=== PATIENT | female | born 1950 | race Caucasian/White ===

== ENCOUNTER → 2017-06-23 09:56 | Outpatient (CLI) | payer MEDICARE, OTHER, SELFPAY ==
--- NOTE | 2017-06-23 10:01 | HPBI_ITS ---
MAMMOGRAPHY - BILATERAL SCREENING REASON FOR EXAM: Female, 66 years old. Routine annual screening examination. PERTINENT HISTORY: Sister with breast cancer. TECHNIQUE: Digital bilateral breast saadia (3D mammographic acquisition) in the CC and MLO projections. 2-D mediolateral oblique (MLO) and craniocaudad (CC) views of both breasts were obtained. CAD: Full Field Digital Mammography with Computer Added Detection was performed. COMPARISON: Comparison is made with prior study dated September 05, 2015 and July 12, 2014. FINDINGS: Breast Composition: The breasts are almost entirely fatty. There are no dominant masses or suspicious calcifications. A battery pack from a left-sided pacemaker is seen in the left axillary region. This is unchanged. No other significant abnormalities are identified. There has been no significant change since the prior study. HPBI/SCREENING MAMM (CAD), BILAT IMPRESSION: Stable bilateral screening mammogram. Yearly follow-up mammogram recommended. (A) ASSESSMENT CATEGORY: BIRADS Category 1: Negative. A letter regarding these results will be sent to the patient by the facility within 30 days. Approximately 10% of breast cancers are not detected by mammography. A normal mammogram should not delay biopsy of a clinically suspicious abnormality. [id number] Electronically Signed: Albin Owusu MD at 12:39 EST Tel [phone], Service support ,
== END ==
PROVIDERS: Family Provider Family Medicine; PCP Family Medicine; Visit Provider Family Medicine
DX: Z12.31 Encounter for screening mammogram for malignant neoplasm of breast (principal)
CPT/HCPCS: 77063; 77067

== ENCOUNTER → 2018-02-10 16:24 | Outpatient (CLI) | payer MEDICARE, OTHER, SELFPAY ==
[2018-02-10 12:17] LABS: Absolute Lymphocyte Count 1.61 X10^3/ul (0.83-4.51); Absolute Neutrophil Count 4.6 X10^3/uL (2.0-7.7); Basophil# 0.03 X10^3/uL; Basophil% 0.4 % (0-1); Eosinophils% 2.8 % (0-5); Hematocrit 40.9 % (37-47); Hemoglobin 13.6 g/dl (12.0-15.0); Lymphocyte # 1.61 X10^3/ul (4.0); Lymphocyte % 22.9 % (19-41); Mean Corp Hgb Conc 33.3 g/gl (32-36); Mean Corpuscular Hgb 32.2 pg (27.0-32.0); Mean Corpuscular Volume 96.9 fL (81-99); Mean Platelet Vol. 11.4 fl (6.2-12.0); Monocyte# 0.57 X10^3/uL; Monocyte% 8.1 % (0-10); Neutrophil # 4.61 X10^3/uL (2.7-7.7); Neutrophil % 65.7 % (47-70); Platelet Count 206 K/mm3 (150-450); RBC Distribution Width CV 12.9 % (11.6-14.6); RBC Distribution Width SD 44.6 fl (35.1-43.9); Red Blood Count 4.22 M/mm3 (4.2-5.4)
[2018-02-10 12:23] LABS: POSITIVE COUNT NO; POSITIVE DIFFERENTIAL NO; POSITIVE MORPHOLOGY NO
[2018-02-10 12:26] LABS: ALB/GLOB Ratio 0.9 RATIO (0.9-2.4); AST(SGOT) 21 U/L (15-37); Alanine Aminotransfer ALT/SGPT 26 U/L (13-56); Albumin, Serum 3.5 g/dL (3.2-5.0); Alkaline Phosphatase 72 U/L (45-117); Anion Gap 4 (5-15); BUN 20 mg/dL (7-18); BUN/Creat Ratio 21.5 RATIO (10-20); Calcium,Total 8.7 mg/dL (8.5-10.1); Chloride 106 mmol/L (98-107); Cholesterol 123 mg/dL (200); Creatinine, Serum 0.93 mg/dL (0.55-1.02); EST Glomerular Filtration Rate 63 mL/min (>60); Est Glom Filt Rate - Afr Amer 77 mL/min (>60); Globulin 4.1 g/dL (2.2-4.2); Glucose 122 mg/dL (74-106); High Density Lipoprotein 64 mg/dL; Potassium 4.5 mmol/L (3.5-5.1); Protein, Total 7.6 g/dL (6.4-8.2); Sodium Level 140 mmol/L (136-145); Triglycerides 111 mg/dL; Very Low Density Lipoprotein 22 mg/dL (5-40)
[2018-02-10 12:38] LABS: Hemoglobin A1c 7.5 % (4.2-6.3)
[2018-02-10 12:42] LABS: Microalbumin:Creatinine Ratio 18.6 mg/g CRE (<30 mg/g CRE)
== END ==
PROVIDERS: Family Provider Family Medicine; PCP Family Medicine; Referring Provider Family Medicine; Visit Provider Family Medicine
DX: E11.319 Type 2 diabetes mellitus with unspecified diabetic retinopathy without macular edema (principal); I25.10 Atherosclerotic heart disease of native coronary artery without angina pectoris; I10 Essential (primary) hypertension; E78.5 Hyperlipidemia, unspecified
CPT/HCPCS: 36415; 80053; 80061; 82043; 82570; 83036; 85025

== ENCOUNTER → 2018-06-30 14:45 | Outpatient (CLI) | payer MEDICARE, OTHER, SELFPAY ==
[2018-06-30 16:07] LABS: Anion Gap 8 (5-15); BUN 17 mg/dL (7-18); BUN/Creat Ratio 20.1 RATIO (10-20); Calcium,Total 9.2 mg/dL (8.5-10.1); Chloride 106 mmol/L (98-107); Creatinine, Serum 0.84 mg/dL (0.55-1.02); EST Glomerular Filtration Rate 71 mL/min (>60); Est Glom Filt Rate - Afr Amer 86 mL/min (>60); Glucose 103 mg/dL (74-106); Magnesium 2.4 mg/dL (1.6-2.6); Potassium 3.9 mmol/L (3.5-5.1); Sodium Level 141 mmol/L (136-145)
== END ==
PROVIDERS: Family Provider Family Medicine; PCP Family Medicine
DX: Z45.02 Encounter for adjustment and management of automatic implantable cardiac defibrillator (principal)
CPT/HCPCS: 36415; 80048; 83735

== ENCOUNTER → 2018-11-24 09:17 | Outpatient (CLI) | payer MEDICARE, OTHER, SELFPAY ==
[2018-11-24 12:29] LABS: Absolute Lymphocyte Count 1.37 X10^3/ul (0.83-4.51); Absolute Neutrophil Count 4.4 X10^3/uL (2.0-7.7); Basophil# 0.04 X10^3/uL; Basophil% 0.6 % (0-1); Eosinophil# 0.19 X10^3/uL; Eosinophils% 2.9 % (0-5); Hematocrit 40.4 % (37-47); Hemoglobin 13.5 g/dl (12.0-15.0); Lymphocyte # 1.37 X10^3/ul (4.0); Lymphocyte % 20.8 % (19-41); Mean Corp Hgb Conc 33.4 g/gl (32-36); Mean Corpuscular Hgb 31.5 pg (27.0-32.0); Mean Corpuscular Volume 94.2 fL (81-99); Mean Platelet Vol. 11.8 fl (6.2-12.0); Monocyte# 0.55 X10^3/uL; Monocyte% 8.3 % (0-10); Neutrophil # 4.44 X10^3/uL (2.7-7.7); Neutrophil % 67.2 % (47-70); Platelet Count 205 K/mm3 (150-450); RBC Distribution Width CV 12.8 % (11.6-14.6); RBC Distribution Width SD 42.8 fl (35.1-43.9); Red Blood Count 4.29 M/mm3 (4.2-5.4); White Blood Count 6.6 K/mm3 (4.4-11.0)
[2018-11-24 12:41] LABS: Microalbumin,Random Urine 47.8 mg/L (NO RANGE EST.); Microalbumin:Creatinine Ratio 28.3 mg/g CRE (<30 mg/g CRE)
[2018-11-24 12:51] LABS: POSITIVE COUNT NO; POSITIVE DIFFERENTIAL NO; POSITIVE MORPHOLOGY NO
[2018-11-24 13:02] LABS: Hemoglobin A1c 7.9 % (4.2-6.3)
[2018-11-24 13:05] LABS: ALB/GLOB Ratio 0.9 RATIO (0.9-2.4); AST(SGOT) 19 U/L (15-37); Alanine Aminotransfer ALT/SGPT 24 U/L (13-56); Albumin, Serum 3.5 g/dL (3.2-5.0); Alkaline Phosphatase 77 U/L (45-117); Anion Gap 5 (5-15); BUN 20 mg/dL (7-18); BUN/Creat Ratio 20.1 RATIO (10-20); Calcium,Total 8.8 mg/dL (8.5-10.1); Chloride 106 mmol/L (98-107); Cholesterol 136 mg/dL (200); Creatinine, Serum 0.99 mg/dL (0.55-1.02); EST Glomerular Filtration Rate 59 mL/min (>60); Est Glom Filt Rate - Afr Amer 71 mL/min (>60); Globulin 3.7 g/dL (2.2-4.2); Glucose 151 mg/dL (74-106); High Density Lipoprotein 64 mg/dL; Potassium 4.3 mmol/L (3.5-5.1); Protein, Total 7.2 g/dL (6.4-8.2); Sodium Level 139 mmol/L (136-145); Triglycerides 77 mg/dL; Very Low Density Lipoprotein 15 mg/dL (5-40)
== END ==
PROVIDERS: Family Provider Family Medicine; PCP Family Medicine; Visit Provider Family Medicine
DX: E11.319 Type 2 diabetes mellitus with unspecified diabetic retinopathy without macular edema (principal); I25.10 Atherosclerotic heart disease of native coronary artery without angina pectoris; I10 Essential (primary) hypertension; E78.5 Hyperlipidemia, unspecified
CPT/HCPCS: 36415; 80053; 80061; 82043; 82570; 83036; 85025

== ENCOUNTER → 2019-11-26 14:50 | Outpatient (CLI) | payer MEDICARE, OTHER, SELFPAY ==
[2019-11-26 17:35] LABS: Anion Gap 7 (5-15); BUN 21 mg/dL (7-18); BUN/Creat Ratio 20.8 RATIO (10-20); Calcium,Total 8.9 mg/dL (8.5-10.1); Chloride 103 mmol/L (98-107); Creatinine, Serum 1.01 mg/dL (0.55-1.02); EST Glomerular Filtration Rate 57 mL/min (>60); Est Glom Filt Rate - Afr Amer 69 mL/min (>60); Glucose 212 mg/dL (74-106); Potassium 4.1 mmol/L (3.5-5.1); Sodium Level 137 mmol/L (136-145)
== END ==
PROVIDERS: PCP Family Medicine; Visit Provider Family Medicine
DX: Z51.81 Encounter for therapeutic drug level monitoring (principal)
CPT/HCPCS: 36415; 80048

== ENCOUNTER 2020-07-24 16:28 | Outpatient (RCR) | payer MEDICARE, OTHER, SELFPAY ==
[2020-07-24] MEDS: COVID-19 VACC, MRNA(PFIZER)/PF 30 MCG/0.3 ML SYRINGE IM (18:49)
[2020-08-14] MEDS: COVID-19 VACC, MRNA(PFIZER)/PF 30 MCG/0.3 ML SYRINGE IM (18:29)
== END 2020-10-21 23:59 ==
LOC: IMMUN 16:28
PROVIDERS: PCP Family Medicine; Visit Provider Family Medicine
DX: Z23 Encounter for immunization (principal)
CPT/HCPCS: 0001A; 0002A; 91300

== ENCOUNTER → 2022-01-01 | Outpatient (CLI) | payer MEDICARE, OTHER, SELFPAY ==
[2022-01-01 12:55] LABS: Anion Gap 4 (5-15); BUN 32 mg/dL (7-18); BUN/Creat Ratio 23.7 RATIO (10-20); Calcium,Total 9.2 mg/dL (8.5-10.1); Chloride 108 mmol/L (98-107); Cholesterol 128 mg/dL (200); Creatinine, Serum 1.35 mg/dL (0.55-1.02); EST Glomerular Filtration Rate 41 mL/min (>60); Est Glom Filt Rate - Afr Amer 49 mL/min (>60); Glucose 166 mg/dL (74-106); High Density Lipoprotein 67 mg/dL; Potassium 4.9 mmol/L (3.5-5.1); Sodium Level 139 mmol/L (136-145); Triglycerides 77 mg/dL; Very Low Density Lipoprotein 15 mg/dL (5-40)
== END | disposition home or self-care (01) ==
LOC: MTLAB 09:39
PROVIDERS: PCP Family Medicine; Referring Provider Family Medicine; Visit Provider Family Medicine
DX: E11.319 Type 2 diabetes mellitus with unspecified diabetic retinopathy without macular edema (principal); E11.22 Type 2 diabetes mellitus with diabetic chronic kidney disease; N18.31 Chronic kidney disease, stage 3a; E78.5 Hyperlipidemia, unspecified
CPT/HCPCS: 36415; 80048; 80061

== ENCOUNTER → 2022-01-14 | Outpatient (CLI) | payer MEDICARE, OTHER, SELFPAY ==
--- NOTE | 2022-01-14 15:36 | BI_ITS ---
MAMMOGRAPHY - BILATERAL SCREENING REASON FOR EXAM: Female, 71 years old. Routine annual screening examination. PERTINENT HISTORY: Sister with breast cancer. TECHNIQUE: Digital bilateral breast waqar (3D mammographic acquisition) in the CC and MLO projections. 2-D mediolateral oblique (MLO) and craniocaudad (CC) views of both breasts were obtained. CAD: Full Field Digital Mammography with Computer Added Detection was performed. COMPARISON: Comparison is made with prior study dated 06/23/2017 and 09/05/2015. FINDINGS: Breast Composition: The breasts are almost entirely fatty. There are no dominant masses or suspicious calcifications. A pacemaker battery pack is seen in the axillary region of the left breast. No other significant abnormalities are identified. There has been no significant change since the prior study. BI/SCRN MAMM (CAD)W/WAQAR BILAT IMPRESSION: Stable bilateral screening mammogram. Yearly follow-up mammogram recommended. (A) ASSESSMENT CATEGORY: BIRADS Category 2: Benign. A letter regarding these results will be sent to the patient by the facility within 30 days. Approximately 10% of breast cancers are not detected by mammography. A normal mammogram should not delay biopsy of a clinically suspicious abnormality. [id number] Electronically Signed: Albin Owusu MD at 8:23 EDT ,
--- NOTE | 2022-01-14 15:45 | BD_ITS ---
STUDY: DUAL ENERGY X-RAY ABSORPTIOMETRY / DXA REASON FOR EXAM: Female, 71 years old. M810. Patient is postmenopausal. TECHNIQUE: Bone Mineral Density (BMD) measurements of lumbar spine and bilateral hips were obtained. COMPARISON: None. FINDINGS: Lumbar Spine (L1-L4): g/cm2 (1.007) / T-score (-0.3) / Z-score (2.0) Findings are suggestive of normal bone density with a low fracture risk. Left Femur Total: g/cm2 (0.865) / T-score (-0.6) / Z-score (1.1) Left Femoral Neck: g/cm2 (0.595) / T-score (-2.3) / Z-score (-0.3) Right Femur Total: g/cm2 (0.881) / T-score (-0.5) / Z-score (1.2) Right Femoral Neck: g/cm2 (0.682) / T-score (-1.5) / Z-score (0.5) BD/Dexa Bone Density Study IMPRESSION: The patient is considered osteopenic as outlined below according to World Angel Organization (WHO) criteria with a high fracture risk. Reference Information: The T-score is the number of standard deviations above or below the standard which is normal for young adults at their peak bone mineral density. The World Health Organization (WHO) interprets the T-scores as follows: Above -1 Normal bone density Between -1 and -2.5 Osteopenia Equal to / or below -2.5 Osteoporosis As a practical clinical guideline, osteopenia may be graded as follows: Mild -1 through -1.5 Moderate -1.6 through -2.0 Severe -2.1 through -2.4 The Z-score is the number of standard deviations above or below age-matched controls. A Z-score of less than -1.5 would be considered abnormal. References: 1. NIH Osteoporosis and Related Bone Diseases www osteo.org 2. International Society for Clinical Densitometry www iscd.org 3. National Osteoporosis Foundation www nof.org Electronically Signed: Albin Owusu MD at 14:49 EDT ,
== END | disposition home or self-care (01) ==
LOC: OPBD 15:34
PROVIDERS: PCP Family Medicine; Visit Provider Family Medicine
DX: Z12.31 Encounter for screening mammogram for malignant neoplasm of breast (principal); M81.0 Age-related osteoporosis without current pathological fracture; Z80.3 Family history of malignant neoplasm of breast
CPT/HCPCS: 77063; 77067; 77080

== ENCOUNTER → 2022-01-27 | Outpatient (CLI) | payer MEDICARE, OTHER, SELFPAY ==
[2022-01-27 12:22] LABS: Anion Gap 6 (5-15); BUN 31 mg/dL (7-18); BUN/Creat Ratio 23.3 RATIO (10-20); Calcium,Total 9.1 mg/dL (8.5-10.1); Chloride 104 mmol/L (98-107); Creatinine, Serum 1.33 mg/dL (0.55-1.02); EST Glomerular Filtration Rate 42 mL/min (>60); Est Glom Filt Rate - Afr Amer 50 mL/min (>60); Glucose 178 mg/dL (74-106); Sodium Level 139 mmol/L (136-145)
== END | disposition home or self-care (01) ==
LOC: LAB 11:44
PROVIDERS: PCP Family Medicine
DX: I50.22 Chronic systolic (congestive) heart failure (principal); R79.89 Other specified abnormal findings of blood chemistry
CPT/HCPCS: 36415; 80048

== ENCOUNTER → 2022-03-10 | Outpatient (CLI) | payer MEDICARE, OTHER, SELFPAY ==
[2022-03-10 11:25] LABS: Anion Gap 5 (5-15); BUN 32 mg/dL (7-18); BUN/Creat Ratio 21.1 RATIO (10-20); Calcium,Total 9.4 mg/dL (8.5-10.1); Chloride 100 mmol/L (98-107); Creatinine, Serum 1.52 mg/dL (0.55-1.02); EST Glomerular Filtration Rate 36 mL/min (>60); Est Glom Filt Rate - Afr Amer 43 mL/min (>60); Glucose 306 mg/dL (74-106); Potassium 5.3 mmol/L (3.5-5.1); Sodium Level 133 mmol/L (136-145)
== END | disposition home or self-care (01) ==
LOC: LAB 10:02
PROVIDERS: PCP Family Medicine
DX: N17.9 Acute kidney failure, unspecified (principal)
CPT/HCPCS: 36415; 80048

== ENCOUNTER → 2022-04-15 | Outpatient (CLI) | payer MEDICARE, OTHER, SELFPAY ==
[2022-04-15 11:48] LABS: Anion Gap 8 (5-15); BUN 29 mg/dL (7-18); BUN/Creat Ratio 18.2 RATIO (10-20); Calcium,Total 8.4 mg/dL (8.5-10.1); Chloride 100 mmol/L (98-107); Creatinine, Serum 1.59 mg/dL (0.55-1.02); EST Glomerular Filtration Rate 34 mL/min (>60); Est Glom Filt Rate - Afr Amer 41 mL/min (>60); Glucose 426 mg/dL (74-106); Potassium 4.7 mmol/L (3.5-5.1); Sodium Level 133 mmol/L (136-145)
== END | disposition home or self-care (01) ==
LOC: LAB 11:09
PROVIDERS: PCP Family Medicine
DX: R79.89 Other specified abnormal findings of blood chemistry (principal)
CPT/HCPCS: 36415; 80048

== ENCOUNTER → 2022-07-13 | Outpatient (CLI) | payer MEDICARE, OTHER, SELFPAY ==
[2022-07-13 10:06] LABS: ALB/GLOB Ratio 0.9 RATIO (0.9-2.4); AST(SGOT) 13 U/L (15-37); Alanine Aminotransfer ALT/SGPT 18 U/L (13-56); Albumin, Serum 3.4 g/dL (3.2-5.0); Alkaline Phosphatase 71 U/L (45-117); Anion Gap 4 (5-15); BUN 19 mg/dL (7-18); Calcium,Total 9.3 mg/dL (8.5-10.1); Chloride 107 mmol/L (98-107); Cholesterol 130 mg/dL (200); Creatinine, Serum 1.12 mg/dL (0.55-1.02); EST Glomerular Filtration Rate 51 mL/min (>60); Est Glom Filt Rate - Afr Amer 61 mL/min (>60); Globulin 3.8 g/dL (2.2-4.2); Glucose 90 mg/dL (74-106); High Density Lipoprotein 66 mg/dL; Potassium 4.7 mmol/L (3.5-5.1); Protein, Total 7.2 g/dL (6.4-8.2); Sodium Level 140 mmol/L (136-145); Triglycerides 70 mg/dL; Very Low Density Lipoprotein 14 mg/dL (5-40)
== END | disposition home or self-care (01) ==
PROVIDERS: PCP Family Medicine
DX: I50.22 Chronic systolic (congestive) heart failure (principal); E78.5 Hyperlipidemia, unspecified
CPT/HCPCS: 36415; 80053; 80061

== ENCOUNTER → 2022-12-27 | Outpatient (CLI) | payer MEDICARE, OTHER, SELFPAY ==
[2022-12-27 10:45] LABS: Absolute Lymphocyte Count 1.53 X10^3/uL (0.83-4.51); Absolute Neutrophil Count 5.3 X10^3/uL (2.0-7.7); Basophil# 0.04 X10^3/uL; Basophil% 0.5 % (0-1); Eosinophil# 0.21 X10^3/uL; Eosinophils% 2.8 % (0-5); Hematocrit 42.3 % (37-47); Hemoglobin 14.3 g/dL (12.0-15.0); Lymphocyte # 1.53 X10^3/ul (0.83-4.51); Lymphocyte % 20.2 % (19-41); Mean Corp Hgb Conc 33.8 g/dL (32-36); Mean Corpuscular Hgb 33.2 pg (27.0-32.0); Mean Corpuscular Volume 98.1 fL (81-99); Mean Platelet Vol. 10.7 fl (6.2-12.0); Monocyte# 0.49 X10^3/uL; Monocyte% 6.5 % (0-10); NRBC Flagged by Analyzer 0 % (0-5); Neutrophil # 5.28 X10^3/uL (2.7-7.7); Neutrophil % 69.7 % (47-70); Platelet Count 213 K/mm3 (150-450); RBC Distribution Width CV 13.2 % (11.6-14.6); RBC Distribution Width SD 46.9 fl (35.1-43.9); Red Blood Count 4.31 M/mm3 (4.2-5.4); White Blood Count 7.6 K/mm3 (4.4-11.0)
[2022-12-27 11:10] LABS: Microalbumin,Random Urine 5.6 mg/L (NO RANGE EST.); Microalbumin:Creatinine Ratio 11.6 mg/g CRE (<30 mg/g CRE)
[2022-12-27 11:21] LABS: ALB/GLOB Ratio 0.8 RATIO (0.9-2.4); AST(SGOT) 13 U/L (15-37); Alanine Aminotransfer ALT/SGPT 20 U/L (13-56); Albumin, Serum 3.4 g/dL (3.2-5.0); Alkaline Phosphatase 81 U/L (45-117); Anion Gap 5 (5-15); BUN 29 mg/dL (7-18); BUN/Creat Ratio 24.6 RATIO (10-20); Calcium,Total 9.1 mg/dL (8.5-10.1); Chloride 105 mmol/L (98-107); Cholesterol 124 mg/dL (200); Creatinine, Serum 1.18 mg/dL (0.55-1.02); EST Glomerular Filtration Rate 48 mL/min (>60); Est Glom Filt Rate - Afr Amer 58 mL/min (>60); Glucose 235 mg/dL (74-106); High Density Lipoprotein 65 mg/dL; Potassium 4.9 mmol/L (3.5-5.1); Protein, Total 7.4 g/dL (6.4-8.2); Sodium Level 137 mmol/L (136-145); Thyroid Stim Hormone (TSH) 1.53 uIU/mL (0.358-3.74); Triglycerides 79 mg/dL; Very Low Density Lipoprotein 16 mg/dL (5-40); Vitamin D,25 Hydroxy 42.8 ng/mL
[2022-12-27 11:38] LABS: Hemoglobin A1c 7.8 % (3.8-5.6)
== END | disposition home or self-care (01) ==
LOC: LAB 10:09
PROVIDERS: PCP Family Medicine; Referring Provider Family Medicine; Visit Provider Family Medicine
DX: Z01.83 Encounter for blood typing (principal); E11.319 Type 2 diabetes mellitus with unspecified diabetic retinopathy without macular edema; E11.22 Type 2 diabetes mellitus with diabetic chronic kidney disease; N18.31 Chronic kidney disease, stage 3a; I12.9 Hypertensive chronic kidney disease with stage 1 through stage 4 chronic kidney disease, or unspecified chronic kidney disease; I25.10 Atherosclerotic heart disease of native coronary artery without angina pectoris; E55.9 Vitamin D deficiency, unspecified
CPT/HCPCS: 36415; 80053; 80061; 82043; 82306; 82570; 83036; 84443; 85025; 86850; 86900; 86901

== ENCOUNTER → 2023-04-15 | Outpatient (CLI) | payer MEDICARE, OTHER, SELFPAY ==
--- NOTE | 2023-04-15 11:06 | CDU_ITS ---
Reason For Study: Recent vitreous hemorrhage left eye, know vaxculopathy Rt. Velocities/BP Lt. Velocities/BP Prox CCA 74.9/10.7 cm/sec. Prox CCA 68.9/11.2 cm/sec. Mid CCA 67.6/9.1 cm/sec. Mid CCA 78.0/14.7 cm/sec. Dist CCA 51.6/12.8 cm/sec. Dist CCA 59.1/12.8 cm/sec. Prox ICA 39.5/10.9 cm/sec. Prox ICA 61.3/10.9 cm/sec. Mid ICA 75.7/18.6 cm/sec. Mid ICA 92.0/10.9 cm/sec. Dist ICA 84.5/23.0 cm/sec. Dist ICA 74.8/17.1 cm/sec. 84.5/67.6=1.2. Lt. ICA/CCA = 92.0/78.0=1.2. Prox ECA 125.3/0.0 cm/sec. Prox ECA 172.5/3.5 cm/sec. Rt. Vert. 40.5/11.2 cm/sec. Lt. Vert. 65.3/17.4 cm/sec. Right Extracranial There is no significant atherosclerotic plaque noted in the right common carotid artery. There is heterogeneous, irregular atherosclerotic plaque noted in the right internal carotid artery. There is intimal thickening but no significant atherosclerotic plaque noted in the right external carotid artery. Antegrade flow is noted in the right vertebral artery. Left Extracranial There is homogeneous, smooth atherosclerotic plaque noted in the left common carotid artery. There is heterogeneous, irregular atherosclerotic plaque noted in the left internal carotid artery. There is homogeneous, smooth atherosclerotic plaque noted in the left external carotid artery. Antegrade flow is noted in the left vertebral artery. Procedure Carotid Duplex [id number]. This is a Carotid Duplex examination using B-mode, color flow and specral Doppler. Exam performed in department. VL/Carotid Duplex Ultrasound Interpretation Summary Mild (<50%) stenosis right extracranial internal carotid. Mild (<50%) stenosis left extracranial internal carotid. Patent and antegrade vertebrals bilaterally. Ordering Physician: Gonzalo Zabala Referring Physician: Gonzalo Zabala Performed By: Tonya Herrera, MARION, RVT
== END | disposition home or self-care (01) ==
LOC: CVS 11:04
PROVIDERS: PCP Family Medicine; Referring Provider Family Medicine; Visit Provider Family Medicine
DX: I65.23 Occlusion and stenosis of bilateral carotid arteries (principal); H43.12 Vitreous hemorrhage, left eye
CPT/HCPCS: 93880

== ENCOUNTER 2023-06-03 07:19 | Day surgery (SDC) | payer MEDICARE, OTHER, SELFPAY ==
--- NOTE | 2023-06-03 | COLBX_PTH ---
PATHOLOGY RESULTS PATIENT: DAVID CERNA LOC: EN U#:[id number] AGE/SX: 72/F ROOM: RE06/03/[address]: Dr. Inocente Mota MD : [id number] BED: DIS: 06/03/2023 SPEC #: [id number] RECD: 06/03/23 13:16 STATUS: SANDOR DEE DEE #: [id number] IRMA: 06/03/23 00:[address]: Inocente Mota DEPT: SURGICAL PATHOLOGY RECD BY: Esau Barbosa ENTERED: 06/03/23 13:17 SP TYPE: COLON BX OTHR DR: Dr. Gonzalo Zabala, Tissues: Sigmoid colon biopsy Procedures: Surgery Specimen Level IV HEADER OPERATION: Colonoscopy, biopsy PRE-OP DIAGNOSIS: Left lower quadrant pain TISSUE SUBMITTED: Sigmoid colon biopsy MICROSCOPIC DIAGNOSIS Sigmoid colon, biopsy: Fragments of colonic mucosa, no pathologic diagnosis. SJ:cem 06/06/2023 MICROSCOPIC DESCRIPTION Slides are reviewed. GROSS DESCRIPTION Received in fixative is one container labeled with the patient's name and designated sigmoid colon biopsy. The specimen consists of multiple irregular fragments of light mahajan soft tissue that in aggregate measure 1.0 x 0.3 x 0.1 cm. The specimen is totally submitted in one cassette. / SJ:rg 06/03/2023 TC:4 CPT: 04029
[2023-06-03] MEDS: Lactated Ringers 1,000 ML 15 ML IV (07:00)
--- OUTSIDE RECORDS SUMMARY | 2023-06-03 07:24 | XMS RPT_ITS | CCD ---
Author Name Unknown Address [address] [place] [id number] Organization [facility] Care Team Providers Care Transport Tech Name Role Phone Stan Zabala Primary Care Provider Unavailab le JERRY, STAN Primary Care Unavailable JERRY, STAN Primary Care Unavailable JERRY, STAN Primary Care Unavailable CAVO, TIFFANIE Attending Unavailable JERRY, STAN Primary Care Unavailable CAVO, TIFFANIE Attending Unavailable JERRY, STAN Primary Care Unavailable CAVO, TIFFANIE Attending Unavailable JERRY, STAN Primary Care Unavailable JERRY, STAN Primary Care Unavailable JERRY, STAN Primary Care Unavailable CAVO, TIFFANIE Attending Unavailable CAVO, TIFFANIE Referring Unavailable JERRY, STAN Primary Care Unavailable CAVO, TIFFANIE Attending Unavailable CAVO, TIFFANIE Referring Unavailable JERRY, STAN Primary Care Unavailable Stan Zabala Primary Care Provider Allergies Allergy Classification Reported Allergen(s) Allergy Type Date of Onset Reaction(s) Facility (3 sources) Adhesive Tape Propensity to adverse reactions to drug 5 Rash [facility] Work Phone: (3 sources) celecoxib Drug Allergy 5 [facility] Work Phone: (11 sources) Ciprofloxacin Drug Allergy 6 Rash [facility] Work Phone: (3 sources) Lisinopril Drug Allergy 6 Other (See Comments) [facility] Work Phone: (8 sources) celecoxib Drug Allergy 0 [facility] (8 sources) Lisinopril Propensity to adverse reactions 6 [facility] (8 sources) Wound Dressing [facility] Current Medications Medication Drug Class(es) Dates Sig (Normalized) Sig (Original) acetaminophen 325 mg oral tablet (1 source) Start: 03-26-2021 acetaminophen (TYLENOL) tablet 650 mg aspirin 81 mg delayed release oral tablet (11 sources) Platelet Aggregation Inhibitor, Nonsteroidal Anti-inflammatory Drug take 1 tablet by mouth in the morning aspirin 81 MG EC tablet Take 81 mg by mouth in the morning. 0 Active Completed/Discontinued Medications Medication Drug Class(es) Dates Sig (Normalized) Sig (Original) perflutren lipid microspheres (Definity) injection 1.65 mg (2 sources) Start: 08-25-2022 End: 08-25-2022 perflutren lipid microspheres (Definity) injection 1.65 mg 12 hr ranolazine 500 mg extended release oral tablet (2 sources) Anti-anginal Start: 07-01-2022 End: 08-09-2022 take 1 tablet by mouth twice daily ranolazine (Ranexa) 500 MG 12 hr tablet TAKE ONE TABLET BY MOUTH TWICE DAILY. 180 tablet 2 07/01/2022 08/09/2022 Discontinued (Therapy completed) Problems Active Problems Problem Classification Problem Date Documented Da te Episodic/Chronic Acute myocardial infarction (11 sources) Myocardial infarction; Translations: [Acute myocardial infarction, unspecified] Onset: 02-09-2016 02-09-2016 Chronic Conduction disorders (20 sources) Automatic implantable cardiac defibrillator in situ; Translations: [Presence of automatic (implantable) cardiac defibrillator] Onset: 02-22-2017 02-22-2017 Chronic Conduction disorders (2 sources) History of combination internal cardiac defibrillator and pacemaker; Translations: [ICD (implantable cardioverter-defibri llator) battery depletion] Onset: 08-11-2020 08-11-2020 Episodic Congestive heart failure; nonhypertensive (19 sources) Systolic heart failure; Translations: [Unspecified systolic (congestive) heart failure] Onset: 02-09-2016 02-09-2016 Chronic Coronary atherosclerosis and other heart disease (18 sources) Coronary arteriosclerosis; Translations: [Atherosclerotic heart disease of [place] coronary artery without angina pectoris] Onset: 02-09-2016 02-09-2016 Chronic Diabetes mellitus without complication (11 sources) Diabetes mellitus; Translations: [Type 2 diabetes mellitus without complications] Onset: 02-09-2016 02-09-2016 Chronic Disorders of lipid metabolism (16 sources) Hyperlipidemia; Translations: [Hyperlipidemia, unspecified] Onset: 02-09-2016 02-09-2016 Chronic Essential hypertension (14 sources) Hypertensive disorder; Translations: [Essential (primary) hypertension] Onset: 02-09-2016 02-09-2016 Chronic Other disorders of stomach and duodenum (2 sources) Disorder of function of stomach; Translations: [Disorder of function of stomach] Onset: 01-23-2010 09-18-2015 Chronic Peripheral and visceral atherosclerosis (10 sources) Peripheral vascular disease; Translations: [Peripheral vascular disease, unspecified] Onset: 08-09-2022 08-09-2022 Chronic Unclassified (1 source) Patient encounter status; Translations: [Preop cardiovascular exam] Past or Other Problems Problem Classification Problem Date Documented Da te Episodic/Chronic Esophageal disorders (11 sources) Esophagitis; Translations: [Esophagitis] Onset: 01-23-2010 09-18-2015 Episodic Gastritis and duodenitis (11 sources) Acute gastritis; Translations: [Acute gastritis without bleeding] Onset: 01-23-2010 09-18-2015 Episodic Malaise and fatigue (2 sources) Asthenia; Translations: [Weakness] Onset: 02-21-2023 02-21-2023 Episodic Nonspecific chest pain (10 sources) Chest pain; Translations: [Chest pain, unspecified] Onset: 03-26-2021 Episodic Other circulatory disease (2 sources) Other specified symptoms and signs involving the circulatory and respiratory systems; Translations: [Other specified symptoms and signs involving the circulatory and respiratory systems] Onset: 07-12-2022 Episodic Other connective tissue disease (3 sources) Muscle pain; Translations: [Myalgia, unspecified site] Onset: 02-21-2023 02-21-2023 Episodic Other connective tissue disease (2 sources) Myalgia, unspecified site; Translations: [Myalgia, unspecified site] Onset: 02-21-2023 Episodic Other disorders of stomach and duodenum (9 sources) Disorder of function of stomach; Translations: [Disease of stomach and duodenum, unspecified] Onset: 01-23-2010 09-18-2015 Episodic Results Test Name Value Interpretation Reference Range Facil ity Vital Signs Date Time Vital Sign Value Performing Clinician Faci lity 02-21-2023 14:10-0400 Body height 167.6 cm Tiffanie Arango MD Work Phone: [facility] 02-21-2023 14:10-0400 Body mass index (BMI) [Ratio] 34.54 kg/m2 Tiffanie Arango MD Work Phone: [facility] 02-21-2023 14:10-0400 Body weight 97.07 kg Tiffanie Arango MD Work Phone: [facility] 02-21-2023 14:10-0400 Diastolic blood pressure 60 mm[Hg] Tiffanie Arango MD Work Phone: [facility] 02-21-2023 14:10-0400 Heart rate 56 /min Tiffanie Arango MD Work Phone: [facility] 02-21-2023 14:10-0400 SaO2% (BldA) [Mass fraction] 97 % Tiffanie Arango MD Work Phone: [facility] 02-21-2023 14:10-0400 Systolic blood pressure 106 mm[Hg] Tiffanie Arango MD Work Phone: [facility] 08-09-2022 13:46-0400 Body height 167.6 cm Tiffanie Arango MD Work Phone: [facility] 08-09-2022 13:46-0400 Body mass index (BMI) [Ratio] 35.41 kg/m2 Tiffanie Arango MD Work Phone: [facility] 08-09-2022 13:46-0400 Body weight 99.52 kg Tiffanie Arango MD Work Phone: [facility] 08-09-2022 13:46-0400 Diastolic blood pressure 62 mm[Hg] Tiffanie Arango MD Work Phone: [facility] 08-09-2022 13:46-0400 Heart rate 53 /min Tiffanie Arango MD Work Phone: [facility] 08-09-2022 13:46-0400 SaO2% (BldA) [Mass fraction] 96 % Tiffanie Arango MD Work Phone: [facility] 08-09-2022 13:46-0400 Systolic blood pressure 118 mm[Hg] Tiffanie Arango MD Work Phone: [facility] 03-26-2021 14:00-0500 Diastolic blood pressure 83 mm[Hg] David Hagen MD Work Phone: [facility] 03-26-2021 14:00-0500 Heart rate 58 /min David Hagen MD Work Phone: [facility] 03-26-2021 14:00-0500 Respiratory rate 18 /min David Hagen MD Work Phone: [facility] 03-26-2021 14:00-0500 SaO2% (BldA) [Mass fraction] 93 % David Hagen MD Work Phone: [facility] 03-26-2021 14:00-0500 Systolic blood pressure 143 mm[Hg] David Hagen MD Work Phone: [facility] 03-26-2021 07:06-0500 Body temperature 96.8 [degF] David Hagen MD Work Phone: [facility] 08-11-2020 14:00-0400 BP Diastolic 61 mm[Hg] Kameron OCAMPO Work Phone: 08-11-2020 14:00-0400 BP Systolic 138 mm[Hg] Kameron OCAMPO Work Phone: 08-11-2020 14:00-0400 Pulse (Heart Rate) 57 /min Kameron OCAMPO Work Phone: 08-11-2020 14:00-0400 Pulse Oximetry 94 % Kameron OCAMPO Work Phone: 08-11-2020 14:00-0400 Respiratory Rate 16 /min Kameron OCAMPO Work Phone: 08-11-2020 13:15-0400 Body Temperature 97.2 [degF] Kameron OCAMPO Work Phone: 08-11-2020 06:25-0400 BMI (Body Mass Index) 35.19 kg/m2 Kameron OCAMPO Work Phone: 08-11-2020 06:25-0400 Body weight 98.9 kg Kameron OCAMPO Work Phone: 08-11-2020 06:25-0400 Height 167.6 cm Kameron OCAMPO Work Phone: Encounters Encounter Date Encounter Type Care Provider Facility Start: 05-31-2023 Telephone encounter Kameron Valles MD Work Phone: [facility] Procedures Date Procedure Procedure Detail Performing Clinician Start: 08-25-2022 TTE w or wo fol wcon,Doppler Tiffanie Leo Work Phone: Start: 08-09-2022 Ecg routine ecg w/least 12 lds trcg only w/o i&r Kong Shahidolochoa RUIZ Work Phone: Start: 07-13-2022 Lipid 1996 panel - Serum or Plasma Tiffanie Arango MD Work Phone: Start: 01-14-2022 Mammography Tiffanie Arango MD Work Phone: Start: 03-26-2021 CARDIAC CATH NURSING LOG 3m Scanning Start: 03-26-2021 End: 03-26-2021 Coagulation time activated David Hagen MD Work Phone: Start: 03-26-2021 Gluc bld gluc mntr dev cleared fda spec home use David Hagen MD Work Phone: Start: 08-11-2020 ELECTROPHYSIOLOGY DEVICE Kameron Linn i Work Phone: Start: 08-11-2020 EP NURSE PROCEDURE REPORT 3m Scanning Start: 07-30-2020 Basic metabolic panel calcium total Julieta Peña Work Phone: Start: 07-30-2020 Blood count complete automated Julieta Peña Work Phone: Start: 07-30-2020 Radiologic exam chest 2 views Julieta shi Work Phone: Plan of Treatment Date Care Activity Detail Author Start: 08-29-2023 End: 08-29-2023 Patient encounter procedure [facility] Start: 08-26-2023 End: 08-26-2023 Professional / ancillary services management 08/26/2023 4:00 PM EDT Ancillary Procedure [facility] [address] [place] [id number] [facility] Start: 08-26-2023 Echocardiography Echocardiogram [facility] Start: 07-13-2023 Creatinine measurement Creatinine Level [facility] Start: 07-13-2023 Lipid panel Lipid Panel [facility] Start: 07-13-2023 Potassium measurement Potassium Level [facility] Start: 04-29-2023 End: 04-29-2023 Professional / ancillary services management 04/29/2023 4:30 PM EST Ancillary Procedure [facility] [address] [place] [address] [facility] Start: 03-10-2023 End: 03-10-2023 Professional / ancillary services management 03/10/2023 2:30 PM EDT Ancillary Procedure [facility] [address] [place] [address] [facility] Start: 02-21-2023 End: 02-22-2024 Creatine kinase [Enzymatic activity/volume] in Serum or Plasma CK Lab Routine Myalgia Expected: 02/21/2023 (Approximate), Expires: 02/22/2024 [facility] Work Phone: Immunizations Immunization Date Immunization Notes Care Provider Fa [facility] 02-19-2022 influenza virus vacc ine, unspecified formulation Tiffanie Arango MD Work Phone: [facility] 04-06-2021 Pfizer SARS-CoV-2 Vaccination Tiffanie Arango MD Work Phone: [facility] 08-14-2020 Pfizer SARS-CoV-2 Vaccination Tiffanie Arango MD Work Phone: [facility] 07-24-2020 Pfizer SARS-CoV-2 Vaccination Tiffanie Arango MD Work Phone: [facility] Payers Date Payer Category Payer Unknown [id number] 2015 Unknown [id number] 2013 Medicare [id number] 2013 Medicare MEDICARE MEDICAR E PART A AND B [id number] 2013-Present [address] [place] [address] Medicare [id number] Social History Date Type Detail Facility Start: 04-03-2015 End: 07-30-2020 Tobacco smoking status NHIS Never smoker [facility] Work Phone: Start: 04-03-2015 End: 07-30-2020 Tobacco use and exposure Never used [facility] Work Phone: Start: 07-30-2020 End: 02-21-2023 Alcohol intake Current drinker of alcohol (finding) [facility] Work Phone: Start: 08-28-2015 Alcohol Comment 2-3 monthly [facility] Work Phone: Start: 1950 Sex Assigned At Not on file [address] Work Phone: Start: 07-30-2022 End: 08-09-2022 Exposure to SARS-CoV-2 (event) Not sure [facility] Work Phone: Start: 03-26-2021 End: 02-21-2023 Alcohol intake [facility] Work Phone: Start: 08-09-2022 End: 02-21-2023 Tobacco use panel [facility] Medical Equipment Procedure Code Equipment Code Equipment Origin al Text Equipment Identifier Dates [id number] [id number] Start: 06-01-2010 [id number] [place] [employer] [place] [employer]ri [id number] Start: 08-10-2020 Clinical Notes 03-26-2021 to 06-02-2023 Telephone Encounter - Rose Mary Vargas - 06/02/2023 10:33 AM ESTTelephone Encounter - Cyn Rob RN - 06/01/2023 4:05 PM ESTTelephone Encounter - Rose Mary Sam - 06/01/2023 8:52 AM EST Note Date & Type Note Facility 06-02-2023 Miscellaneous Notes Signed perioperative ICD form faxed back to [facility]. Sent to stat scan as well Returned PC to patient and told her not to stop taking aspirin, patient understood Should NOT stop ASA, has CAD as well as PVD. Patient called in asking if she was okay to stop taking Aspirin. She stated she was told to stop taking it prior to her colonoscopy. Please call and advise. Was handed a perioperative ICD form from [facility] that was faxed to our office today to fill out. Patient to have a colonoscopy and needed device orders. Completed device info and placed in Dr. Valles's office to sign. Will update Dr. Valles's team in epic documented in this encounter [facility] 06-02-2023 Telephone encounter Note Signed perioperative ICD form faxed back to [facility]. Sent to stat scan as well [facility] 06-01-2023 Telephone encounter Note Returned PC to patient and told her not to stop taking aspirin, patient understood [facility] 06-01-2023 Telephone encounter Note Should NOT stop ASA, has CAD as well as PVD. [facility] Work Phone: 06-01-2023 Telephone encounter Note Patient called in asking if she was okay to stop taking Aspirin. She stated she was told to stop taking it prior to her colonoscopy. Please call and advise. [facility] 05-31-2023 Telephone encounter Note Was handed a perioperative ICD form from [facility] that was faxed to our office today to fill out. Patient to have a colonoscopy and needed device orders. Completed device info and placed in Dr. Valles's office to sign. Will update Dr. Valles's team in [facility] 09-03-2022 Telephone encounter Note The patient called back to confirm she takes Spirolactone 25 mg 1\2 tab daily. [facility] 09-03-2022 Miscellaneous Notes The patient called back to confirm she takes Spirolactone 25 mg 1\2 tab daily. Pt's med list has spironolactone 25mg 1/[address] Arango's office note 08/09/22: Aldactone 25 mg daily, Left voice mail asking pt to call to clarify dosing. documented in this encounter [facility] 09-03-2022 Telephone encounter Note Pt's med list has spironolactone 25mg 1/[address] tab daily but per Dr Arango's office note 08/09/22: Aldactone 25 mg daily, Left voice mail asking pt to call to clarify dosing. [facility] 08-09-2022 History of Presen t illness Narrative [facility] [address] [facility] [address] Dept: [phone] Dept Loc: [phone] Visit type: Established : 1950 Chief Complaint: No chief complaint on file. History of Present Illness: Ellyn Cerna is a 71 y.o. female who is here for follow-up for chronic heart failure secondary to ischemic cardiomyopathy. She has a history of a STEMI in 2009 when she had PCI to the proximal LAD, at the time she had VF arrest that required 10 shock and a intra-aortic balloon pump. She has ischemic cardiomyopathy with heart failure reduced ejection fraction in the last ejection fraction was 20% in 10/02/2018. She has a Med[employer] single RV lead ICD placed in 2010, with generation change in July 2020, and last checked 2 months ago. She has type 2 diabetes managed with insulin by PCP, hypertension, PVD and hyperlipidemia. I last saw her 2 weeks ago and she complained of symptomatic hypoglycemia while in insulin therapy. She was not having symptoms of angina or HF. She did complain of leg pain, and given her history and concern for claudication we ordered ABIs. We also ordered a TTE because she hasnt had one in 4 years. Today she reports that her insulin was decreased and she is no longer having hypoglycemia. She has since started exercising on the bike and feels much better. She is scheduled for TTE and ABIs in 2 weeks. She denies CP, SOB, HOLLOWAY, orthopnea, PND, palpitations, dizziness and presyncope/syncope. Past Medical History: Past Medical History: Diagnosis Date CAD (coronary artery disease) Diabetes (HCC) DM (diabetes mellitus) (HCC) type 2 Dysphagia HTN (hypertension) Hyperlipemia Myocardial infarct (CMS/HCC) (HCC) Systolic heart failure (CMS/HCC) (HCC) UTI (urinary tract infection) Past Surgical History Past Surgical History: Procedure Laterality Date CARDIAC CATHETERIZATION 03/26/2021 moderate non obstructive CAD, negative iFR of LAD, Diag and RPL. medical tx CARDIAC DEFIBRILLATOR PLACEMENT 05/2010 CARDIAC DEFIBRILLATOR PLACEMENT 08/11/2020 generator change CARDIAC PROCEDURE Left 08/24/2013 patent stent LAD, EF 20-25% CHOLECYSTECTOMY CORONARY ANGIOPLASTY WITH STENT PLACEMENT 06/08/2009 GABBY-LAD, IABP insertion HYSTERECTOMY SHOULDER SURGERY 04/20/2016 Right Total Shoulder SHOULDER SURGERY 2 times UPPER GASTROINTESTINAL ENDOSCOPY 10/04/2017 Family History Family History Problem Relation Name Age of Onset Heart failure Father Diabetes Mother Kidney disease Mother Cancer Sister Social History Social History Tobacco Use Smoking status: Never Smokeless tobacco: Never Substance Use Topics Alcohol use: Yes Alcohol/week: 0.0 standard drinks Drug use: No Allergies: Allergies Allergen Reactions Celecoxib tightness in chestChest pain Lisinopril cough Ciprofloxacin Rash But patient is not sure Wound Dressing Adhesive Rash Medications: Current Outpatient Medications: aspirin 81 MG EC tablet, Take 81 mg by mouth in the morning., Disp: , Rfl: atorvastatin (Lipitor) 80 MG tablet, Take 80 mg by mouth in the morning., Disp: , Rfl: carvedilol (Coreg) 12.5 MG tablet, Take 1 tablet (12.5 mg) by mouth in the morning and 1 tablet (12.5 mg) in the evening. Take with meals., Disp: 180 tablet, Rfl: 3 citalopram (CeleXA) 40 MG tablet, Take 20 mg by mouth in the morning., Disp: , Rfl: dapagliflozin (Farxiga) 10 MG, TAKE 1 TABLET BY MOUTH EVERY MORNING, Disp: 90 tablet, Rfl: 3 gabapentin (Neurontin) 300 MG capsule, Take 300 mg by mouth 3 times daily as needed., Disp: , Rfl: insulin NPH, Isophane, (HumuLIN N,NovoLIN N) 100 UNIT/ML injection, Inject 20 Units under the skin in the morning and 20 Units before bedtime., Disp: , Rfl: pantoprazole (ProtoNix) 40 MG EC tablet, Take 40 mg by mouth in the morning and 40 mg before bedtime., Disp: , Rfl: sacubitril-valsartan (Entresto) 97-103 MG tablet, TAKE 1 TABLET BY MOUTH 2 TIMES DAILY, Disp: 180 tablet, Rfl: 3 spironolactone (Aldactone) 25 MG tablet, Take 12.5 mg by mouth in the morning., Disp: , Rfl: Review of Systems: Review of Systems Constitutional: Negative. HENT: Negative. Eyes: Negative. Respiratory: Negative. Cardiovascular: Negative. Gastrointestinal: Negative. Endocrine: Negative. Genitourinary: Negative. Musculoskeletal: Negative. Allergic/Immunologic: Negative. Neurological: Negative. Hematological: Negative. Psychiatric/Behavioral: Negative. Physical Examination: Vitals: Vitals: 08/09/22 1346 BP: 118/62 BP Location: Right arm Patient Position: Sitting BP Cuff Size: Adult Pulse: 53 SpO2: 96% Weight: 219 lb 6.4 oz (99.5 kg) Height: 5' 6 (1.676 m) Body mass index is 35.41 kg/m . Physical Exam Constitutional: Appearance: Normal appearance. HENT: Head: Normocephalic and atraumatic. Nose: Nose normal. Mouth/Throat: Mouth: Mucous membranes are moist. Pharynx: Oropharynx is clear. Eyes: Extraocular Movements: Extraocular movements intact. Conjunctiva/sclera: Conjunctivae normal. Pupils: Pupils are equal, round, and reactive to light. Cardiovascular: Rate and Rhythm: Normal rate and regular rhythm. Pulses: Normal pulses. Heart sounds: Normal heart sounds. Pulmonary: Effort: Pulmonary effort is normal. Breath sounds: Normal breath sounds. Abdominal: General: Abdomen is flat. Bowel sounds are normal. Musculoskeletal: General: Normal range of motion. Cervical back: Normal range of motion and neck supple. Skin: General: Skin is warm and dry. Capillary Refill: Capillary refill takes less than 2 seconds. Neurological: General: No focal deficit present. Mental Status: She is alert and oriented to person, place, and time. Psychiatric: Mood and Affect: Mood normal. Behavior: Behavior normal. Thought Content: Thought content normal. Judgment: Judgment normal. Laboratory Tests: Lab Results Component Value Date WBC 7.2 03/18/2021 HGB 13.6 03/18/2021 MCV 94.3 03/18/2021 Lab Results Component Value Date GLUCOSE 178 (H) 01/27/2022 CALCIUM 9.3 07/13/2022 NA 140 07/13/2022 K 4.7 07/13/2022 CO2 29 07/13/2022 CL 107 07/13/2022 BUN 19 07/13/2022 CREATININE 1.12 (A) 07/13/2022 @LASTCMP@ Lab Results Component Value Date CHLPL 135 11/30/2019 CHOL 130 07/13/2022 Lab Results Component Value Date TRIG 70 07/13/2022 TRIG 143 11/30/2019 Lab Results Component Value Date HDL 66 (A) 07/13/2022 HDL 58 11/30/2019 Lab Results Component Value Date LDLCALC 48 11/30/2019 No results found for: BNP Assessment and Plan: 1. CAD (coronary artery disease) Heart failure reduced ejection fraction/ischemic cardiomyopathy. Doing great on goal-directed medical therapy. Asymptomatic. On Coreg 12.5 twice daily, Aldactone 25 mg daily, high-dose Entresto, 10 mg Farxiga daily. Not requiring diuretics for volume control. Plan: Continue current GDMT. TTE in 2 weeks. Hypertension. Well-controlled with the heart failure GDMT regimen. Continue the same CAD. No symptoms of angina. Continue baby aspirin and high-dose statin. Peripheral vascular disease. Patient is a vasculopath and has complaints of claudication, now at rest. Plan to get ABIs, which are scheduled in 2 weeks, and follow-up in 6 months. Hypoglycemia. Resolved with decrease dose of insulin. Associated attestation - Kong Cash DO - 08/09/2022 5:13 PM EDT Stable and doing well. No further hypoglycemic events. Doing well on GDMT. Continues for now, no changes. Patient seen and examined independently by me. Above discussed and I agree with resident and or fellow note except where indicated in the EMR revision history. Also see my additional comments and changes indicated by discrete font, text color, italics, and/or initials. Labs, cultures, and radiographs where available were personally reviewed. Changes were made in the orders as necessary. I discussed patient concerns with all appropriate caregivers and instructions were given. Please see our orders for the updated patient care plan. documented in this encounter [facility] 03-26-2021 [facility] DischBety Meza RN - 03/26/2021 Call your doctor with any medication questions or if you notice any side effects from your medications. If you are unable to fill your medications, please call your Windows Phone Developer immediately. The office number is located with your follow-up appointment information. Call your doctor if any redness or drainage from the wound site. DO NOT stop taking your medication unless instructed to do so by your doctor. Read the drug information material that were given to you and take medications as instructed by your doctor. New drugs may have been added to your medications, that will strengthen your heart and prevent re-stenosis of the coronary arteries. Drink 6 glasses of water (8 ounces each) over the next 24 hours. Water helps clear the dye from your body. No alcoholic beverages for 24 hours. It may interfere with healing. No exercise or sex for 5 days. Call 911 for chest pain, arm pain, nausea, neck pain, dizziness or unusual sweating AND your pain has not relieved with 2 doses of Nitroglycerin. Call your doctor if a lump at the puncture site enlarges or is larger than marble size. Call your doctor for numbness, tingling, or swelling of the fingers, hand or wrist. Call your doctor for increased area or bruising with discoloration extending into the arm. If bleeding occurs, hold pressure with your thumb against the puncture site and your finger against the back of the wrist for 10 minutes, if BLEEDING continues CALL 911. OK to shower. No tub baths, swimming pools or hot tub soaking for three days. Wash site daily with soap and water, dry gently. The healing wound should remain soft and dry. Keep site clean and dry, no soaking of wrist for three days (no cleaning or dish washing). Remove band aid the day after procedure and leave open to air. No bending of affected wrist for 24 hours. DO NOT lift more than three pounds for 3-5 days. No driving for 24 hours. PLEASE CALL YOUR HEART DOCTOR IF YOU CANNOT GET YOUR MEDICATIONS. THE NUMBER IS LISTED WITH YOUR FOLLOW-UP APPOINTMENT. Procedure Sedation Instructions 1. If you have received sedation: you must have someone drive you home 2. You should not drive a car, operate machinery, drink alcohol or perform any activity that requires alertness for the rest of the day. The effects of the sedative should be gone by tomorrow. documented [facility] this encounter [facility] Phone: 03-26-2021 History of Presen t illness Narrative S/p [facility] Plan for medical management with ranolazine. New prescription sent to patient's pharmacy. Explained to patient. I also sent message to our pharmacy about cost, asking to contact patient. Follow up arranged in 1 month to assess symptoms and response to ranolazine. Patient verbalized understanding. [facility] Can[facility]Wait Cardiac Catheterization Laboratory Post-Procedure Note Patient Name: Ellyn Cerna Date: 03/26/2021, 8:57 AM Pre-Operative Diagnosis: Angina Post-Operative Diagnosis: Non-obstructive CAD, confirmed with iFR Procedure: [facility] with coronary angiogram Access: R radial artery Findings: LM with luminal irregularities, patent prior stent in pLAD, 50% proximal LAD stenosis just distal to prior stent, iFR negative. 80% ostial D1 stenosis, iFR negative. LCx with mild diffuse disease. RPL 80% stenosis, iFR negative. Mild disease elsewhere. Complications: None EBL: 5mL Plan: Med management for patient's CAD, consider ranolazine. Physician Signature: Oli Davison MD documented in this encounter [facility] Work Phone: documented in this encounter [facility] Work Phone: Evaluation note* Diagnosis Chronic systolic heart failure (CMS/HCC) (HCC)- Primary Chronic systolic heart failure CAD (coronary artery disease) Coronary atherosclerosis of unspecified type of vessel, [place] or graft Encounter for adjustment or management of cardiac device [facility] Diagnosis Coronary artery disease involving [place] heart without angina pectoris, unspecified vessel or lesion type Mixed hyperlipidemia Encounter for adjustment or management of cardiac device [facility] Diagnosis Coronary artery disease involving [place] heart without angina pectoris, unspecified vessel or lesion type Chronic systolic heart failure (CMS/HCC) (HCC) Chronic systolic heart failure Hyperlipidemia, unspecified hyperlipidemia type Encounter for adjustment or management of cardiac device [facility] Diagnosis Chronic systolic heart failure (CMS/HCC) (HCC) Chronic systolic heart failure Encounter for adjustment or management of cardiac device documented in this encounter [facility] note* Diagnosis Chronic systolic heart failure (CMS/HCC) (HCC) Chronic systolic heart failure Encounter for adjustment or management of cardiac device Encounter for adjustment or management of cardiac device [facility] Diagnosis Myalgia- Primary Unspecified myalgia and myositis Coronary artery disease involving [place] coronary artery of [place] heart without angina pectoris Primary hypertension Unspecified essential hypertension ICD (implantable cardioverter-defibrillator) battery depletion Chronic systolic heart failure (HCC) Chronic systolic heart failure Encounter for adjustment or management of cardiac device documented in this encounter [facility] Assessments Diagnosis Preop cardiovascular exam Pre-operative cardiovascular examination Presence of automatic cardioverter/defibrillator (AICD) Automatic implantable cardiac defibrillator in situ Diagnosis ICD (implantable cardioverter-defibrillator) battery depletion Advance Directives Documents on File Type Date 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 ACP-Advance Directive ACP-Power of Control Clerk Repairs Latest Code Status on File Code Status Date Activated Date Inactivated Comments Full Code 10/04/2017 9:55 AM 10/04/2017 3:49 PM Latest Code Status on File Code Status Date Activated Date Inactivated Comments Full Code 08/11/2020 1:24 PM Full Code 08/11/2020 6:24 AM 08/11/2020 1:24 PM Full Code 10/04/2017 9:55 AM 10/04/2017 3:49 PM Latest Code Status on File Code Status Date Activated Date Inactivated Comments Full Code 03/26/2021 9:06 AM Full Code 03/26/2021 6:52 AM 03/26/2021 9:06 AM Full Code 08/11/2020 1:24 PM 08/11/2020 7:33 PM Discharge Instructions * Discharge Instr - Activity* Caitlyn Brown APRN - YOBANY - 08/11/2020 1:19 PM EDT Per post gen change instructions * Discharge Instr - Diet* Caitlyn Brown APRN - CNP - 08/11/2020 1:19 PM EDT Good nutrition is important when healing from an illness, injury, or surgery. Follow any nutrition recommendations given to you during your hospital stay. If you were given an oral nutrition supplement while in the hospital, continue to take this supplement at home. You can take it with meals, in-between meals, and/or before bedtime. These supplements can be purchased at most local grocery stores, pharmacies, and [employer]. If you have any questions about your diet or nutrition, call the hospital and ask for the dietitian. * Additional Instructions* Caitlyn Brown APRN - CNP - 08/11/2020 Generator Change Discharge Instructions Incision Care: 1. Keep original bandage on. Remove it on__08/16/20 . Leave incision open to air. Do not remove steri-strips (tape) from incision line if present. Do not put any creams, powders or ointments on incision. Allow steri-strips to fall off naturally. If still on 10 days post-op may remove. 2. If you have a pressure dressing (mahajan colored, elastic tape covering your shoulder) remove this when you get home. Pull the tape off slowly to avoid skin tears. There will be another dressing underneath-leave this one on for 5 days. 3. You may take a sponge bath up until _08/13/20 , and then you may shower. Keep dressingon until ___08/16/20 4. Observe area for redness, swelling or drainage. If these symptoms occur, notify the device clinic immediately. [phone]. 5. If the area around your generator/incision becomes painful to touch after early soreness has gone away, or if you experience chills or fever, notify the device clinic immediately 6. For bleeding that does not stop or increased swelling, come to the Emergency Department. Sedation: 1. If you have received sedation: you must have someone drive you home 2. You should not drive a car, operate machinery, drink alcohol or perform any activity that requires alertness for the rest of the day. The effects of the sedative should resolve by tomorrow. Activity: 1. Activity may be gradually increased as tolerated. 2. You may resume driving in 3-4 days or as instructed by your doctor. 3. Always avoid activity that involves rough contact with the upper chest area. Follow up care and appointments: 1. Take all your medications as prescribed by your doctor Medication Changes none 2. Your follow up appointment is scheduled for: Date__08/29/20 Time 9:00am o [address] [place] [address], [address] [place], [address] [address] documented in this encounter Summary Purpose Family History No Family History Records FoundNo Family History Records Found Reason for Referral Specialty Diagnoses / Procedures Referred By Contac t Referred To Contact Cardiology Diagnoses Coronary artery disease involving [place] heart without angina pectoris, unspecified vessel or lesion type Chronic systolic heart failure (CMS/HCC) (HCC) Hyperlipidemia, unspecified hyperlipidemia type Procedures Transthoracic echocardiogram (TTE) complete with contrast, bubble, strain, and 3D PRN MD ECHO TTHRC R-T 2D W/WOM-MODE COMPL SPEC&COLR D MD TTE W OR WO BRIAN ROSARIO Jose, MD [address] [place] [address] [address] [place] [address] Non-Invasive Cardiology [address] [place] [phone] Referral ID Status Reason Start Date Expiration Date V isits Requested Visits Authorized [id number] Closed Perform Procedure 07/12/2022 01/08/2023 1 1 Additional Source Comments Ordered Prescriptions (unrec ognized section and content) Scheduled Active and Recently Administ ered Medications (unrecognized section and content) Continuous Medication Order 03/24/2021 03/25/2021 03/26/2021 0.9 % sodium chloride infusion IntraVENous, at 30 mL/hr, CONTINUOUS, Starting on Alesha 03/26/21 at 0815, Pre-Procedure(Cath) 0815 (Due) PRN Medication Order 03/24/2021 03/25/2021 03/26/2021 0.9 % sodium chloride infusion 25 mL, IntraVENous, at 100 mL/hr, PRN, If patient receiving piggyback infusions without ordered maintenance IV fluids or with frequent/long duration piggyback infusions, Starting on Alesha 03/26/21 at 0905, Administer at the same rate as the piggyback being infused., Recovery(Cath) acetaminophen (TYLENOL) tablet 650 mg 650 mg, Oral, EVERY 4 HOURS PRN, Pain Mild (1-3), Fever, Fever >100.5 F (38 C), Starting on Alesha 03/26/21 at 0905, Maximum dose of acetaminophen is 4000 mg from all sources in 24 hours., Recovery(Cath) sodium chloride flush 0.9 % injection 5-40 mL 5-40 mL, IntraVENous, PRN, Line Care, After every IV line use, Starting on Alesha 03/26/21 at 0652, For Line Patency: Peripheral IV = 5 mL; Midline or Central Line = 10 mL/lumen. If following IV push medication, administer flush at same rate as the IV push. Flush volume is determined by type of infusion therapy being given. For non-viscous solutions use: Peripheral IV = 5 mL Midline or Central Line = 10 mL/lumen For viscous solutions (i.e. blood components, parenteral nutrition, contrast media, or after obtaining blood sample) use: Peripheral IV = 10 mL Midline or Central Line = 20 mL/lumen, Pre-Procedure(Cath) sodium chloride flush 0.9 % injection 5-40 mL 5-40 mL, IntraVENous, PRN, Line Care, Starting on Alesha 03/26/21 at 0905, For Line Patency: Peripheral IV = 5 mL; Midline or Central Line = 10 mL/lumen. If following IV push medication, administer flush at same rate as the IV push. Flush volume is determined by type of infusion therapy being given. For non-viscous solutions use: Peripheral IV = 5 mL Midline or Central Line = 10 mL/lumen For viscous solutions (i.e. blood components, parenteral nutrition, contrast media, or after obtaining blood sample) use: Peripheral IV = 10 mL Midline or Central Line = 20 mL/lumen, Recovery(Cath) Care Teams (unrecognized sec tion and content) Transport Tech Relationship Specialty Start Date End Date Stan Zabala [address] [place] [id number] PCP - General 02/27/18 Transport Tech Relationship Specialty Start Date End Date Stan Zabala [address] [place] [id number] PCP - General 02/27/18 Transport Tech Relationship Specialty Start Date End Date Stan Zabala [place] [id number] PCP - General 02/27/18 Transport Tech Relationship Specialty Start Date End Date Stan Zabala [address] [place] [phone] PCP - General 02/27/18 Transport Tech Relationship Specialty Start Date End Date Stan Zabala [address] [place] [phone] PCP - General 02/27/18 Transport Tech Relationship Specialty Start Date End Date Stan Zabala [address] [place] [phone] PCP - General 02/27/18 INFORMATION SOURCE (unrecogn ized section and content) DATE CREATED AUTHOR AUTHOR'S ORGANIZ ATION 06/02/2023 [facility] Reason for Visit (unrecogniz ed section and content) Reason Onset Date Comments Med Refill 08/25/2022 Specialty Diagnoses / Procedures Referred By Contac t Referred To Contact Cardiology Diagnoses Coronary artery disease involving [place] heart without angina pectoris, unspecified vessel or lesion type Chronic systolic heart failure (CMS/HCC) (HCC) Hyperlipidemia, unspecified hyperlipidemia type Procedures Transthoracic echocardiogram (TTE) complete with contrast, bubble, strain, and 3D PRN MD ECHO TTHRC R-T 2D W/WOM-MODE COMPL SPEC&COLR D MD TTE W OR WO FOL WCON,Tiffanie Romero MD [address] [place] [address] [facility] [address] Non-Invasive Cardiology [address] [place] [address] Referral ID Status Reason Start Date Expiration Date V isits Requested Visits Authorized [id number] Closed Perform Procedure 07/12/2022 01/08/2023 1 1 Reason Onset Date Comments Med Refill 09/03/2022 Reason Comments Med Refill Reason Comments Follow-up Congestive Heart Failure Reason Onset Date Comments Other 05/31/2023 Colonoscopy wolfgang luc form FOR RECORDS PERTAINING TO PATIENTS WHO ARE OR HAVE BEEN ENROLLED IN A CHEMICAL DEPENDENCY/SUBSTANCEABUSE PROGRAM, SOME INFORMATION MAY BE OMITTED. This clinical summary was aggregated from multiple sources. Caution should be exercised in using it in the provision of clinical care. This summary normalizes information from multiple sources, and as a consequence, information in this document may materially change the coding, format and clinical context of patient data. In addition, data may be omitted in some cases. CLINICAL DECISIONS SHOULD BE BASED ON THE PRIMARY CLINICAL RECORDS. [email or web address] provides no warranty or guarantee of the accuracy or completeness of information in this document.
[2023-06-03 07:34] VITALS: BMI 33.5
--- NOTE | 2023-06-03 07:37 | HP.PCM_ITS ---
History and Physical Date of Admission: 06/03/23 Intake Vital Signs 03/06/2109:22 04/15/2310:08 Height 5 ft 6 in 5 ft 6 in Weight: 220 lb BMI 35.5 BP 110/73 Blood Pressure Location Rt brachial Position Sitting Respiration 18 Pulse 58 L Pulse Source Monitor Temp 97.4 F L Temp Source Temporal Pulse Oximetry (%) 96 Oxygen Delivery Method room air Intake Visit Reasons: SCOPE- CHRONIC DIARRHEA Chief Complaint: scope Radiocommunications Technician Required: No Is patient in pain?: No Allergies ciprofloxacin [From Cipro] Allergy (Verified 04/15/23 10:08) Chest tightnessadhesive tape Adverse Reaction (Verified 04/15/23 10:08) Rash Medications aspirin 81 mg tablet,delayed release 81 mg PO DAILY 03/16/21 [History Confirmed 04/15/23] carvedilol 12.5 mg tablet (Coreg) 12.5 mg PO BID 03/16/21 [History Confirmed 04/15/23] citalopram 40 mg tablet (Celexa) 20 mg PO DAILY 03/16/21 [History Confirmed 04/15/23] dapagliflozin propanediol 10 mg tablet (Farxiga) 10 mg PO DAILY 03/16/21 [History Confirmed 04/15/23] gabapentin 300 mg capsule 300 mg PO TID 03/16/21 [History Confirmed 04/15/23] insulin NPH isoph U-100 human 100 unit/mL (3 mL) subcutaneous pen 35 unit subcut DAILY 03/16/21 [History Confirmed 04/15/23] insulin NPH isoph U-100 human 100 unit/mL (3 mL) subcutaneous pen (Novolin N FlexPen) 25 unit subcut QHS 03/16/21 [History Confirmed 04/15/23] pantoprazole 40 mg tablet,delayed release 40 mg PO BID 03/16/21 [History Confirmed 04/15/23] sacubitril 97 mg-valsartan 103 mg tablet (Entresto) 1 tab PO BID 03/16/21 [History Confirmed 04/15/23] spironolactone 25 mg tablet 12.5 mg PO DAILY 03/16/21 [History Confirmed 04/15/23] [facility] Medical History (Updated 04/15/23 @ 12:[address] Inocente Mota MD) Alcohol use Anxiety Arthritis Cardiology follow-up encounter Gastric reflux High cholesterol History of heart attack History of pain when walking History of stress test Hypertension Insulin dependent diabetes mellitus Leg cramps Non-smoker Wears glasses Surgical History History of cardiac catheterization History of implantable cardiac defibrillator (ICD) Hx laparoscopic cholecystectomy Hx of colonoscopy Hx of heart artery stent Social History (Updated 04/15/23 @ 10:08 by Fabi Lau LPN) Smoking Status: Never smoker alcohol intake: current alcohol intake frequency: holidays/special occasions only substance use type: does not use HPI HPI HPI: Patient is a 72-year-old female here for colonoscopy. She reports chronic constipation. She does not report any blood in her stool. She is having left lower quadrant pain. She says this is constant but low-grade. She is also concerned that it is contributing to her constipation or partial blockage. Her last colonoscopy was over 10 years ago. She was scheduled 2 years ago to have a colonoscopy but it got canceled due to her heart. ROS HEENT HEENT: Yes eye injury and eye surgery Endo Endocrine: Yes diabetes mellitus Musc Musculoskeletal: Yes arthritis Cardio Cardiovascular: Yes pacemaker, heart disease, heart attack and heart stent Gastro Gastrointestinal: Yes constipation, Yes acid reflux and Yes gallbladder problem Exam Const General: cooperative Orientation: alert and oriented x3 HENME Head: normal to inspection Neck Neck: normal visual inspection and full ROM Chest Chest palpation & inspection: normal inspection of the chest Resp Effort & Inspection: normal respiratory effort Auscultation: clear to auscultation bilaterally Cardio Rate: regular rate Rhythm: regular rhythm GI Inspection: non-distended Palpation: soft and nontender Skin General: no rashes or lesions noted Neuro General: patient alert and patient oriented x3 Extrem General: full ROM Psych Appearance: grossly normal Mental Status: mental status grossly normal Assessment and Plan Assessment and Plan (1) Left lower quadrant pain: Status: Acute Plan: Patient has left lower quadrant pain and her last colonoscopy was over 10 years ago. I recommend a colonoscopy to evaluate the left lower quadrant pain and constipation. I explained endoscopy in detail to the patient. I explained the risks including but not limited to stroke or heart attack with anesthesia, perforation of the GI tract, bleeding, infection. I explained that any of these could necessitate further emergency surgery. The patient understands and all questions were answered sufficiently. The patient wishes to proceed with procedure. Inocente Mota MD Pager: [facility] [address] [place] [address], [address] [place] [address] Office: I have examined the patient and the H&P has been reviewed. There are no clinical changes since date of exam.
[2023-06-03 07:46] VITALS: BP 130/64; PULSE 77; RESP 17; TEMP 35.8; O2SAT 96; BMI 33.5
[2023-06-03 08:05] LABS: Bedside Glucose 223 mg/dL (74-106)
[2023-06-03 08:15] VITALS: BP 130/64; BP 92/47; PULSE 64; RESP 14; TEMP 36.1; O2SAT 94
--- NOTE | 2023-06-03 08:18 | OP.COLON_ITS ---
Patient Name: Ellyn Mitchell Procedure Date: 06/03/2023 7:30 AM Date of : 1950 Age: 72 Procedure: Colonoscopy Indications: Abdominal pain in the left lower quadrant Providers: Inocente Mota MD Referring MD: Inocente Mota MD Medicines: Propofol per Anesthesia Patient Profile: This is a 72 year old female. Refer to note in patient chart for documentation of history and physical. Last Colonoscopy: more than 3 years ago. Complications: No immediate complications. Procedure: Pre-Anesthesia Assessment: - Prior to the procedure, a History and Physical was performed, and patient medications and allergies were reviewed. The patient's tolerance of previous anesthesia was also reviewed. The risks and benefits of the procedure and the sedation options and risks were discussed with the patient. All questions were answered, and informed consent was obtained. Prior Anticoagulants: The patient has taken no anticoagulant or antiplatelet agents. After reviewing the risks and benefits, the patient was deemed in satisfactory condition to undergo the procedure. After I obtained informed consent, the scope was passed under direct vision. Throughout the procedure, the patient's blood pressure, pulse, and oxygen saturations were monitored continuously. The Colonoscope was introduced through the anus and advanced to the cecum, identified by appendiceal orifice and ileocecal valve. The colonoscopy was performed without difficulty. The patient tolerated the procedure well. The quality of the bowel preparation was good. The ileocecal valve, appendiceal orifice, and rectum were photographed. Scope In: 7:59:33 AM Scope Withdrawal Time 0 hours 6 minutes 10 seconds Scope Out: 8:11:28 AM Total Procedure Duration Time 0 hours 11 minutes 55 seconds Findings: Scattered mild inflammation characterized by congestion (edema) was found in the sigmoid colon. Biopsies were taken with a cold forceps for histology. The exam was otherwise without abnormality on direct and retroflexion views. Impression: - Scattered mild inflammation was found in the sigmoid colon secondary to colitis. Biopsied. - The examination was otherwise normal on direct and retroflexion views. Recommendation: - Discharge patient to home. - Resume previous diet. - Continue present medications. - Await pathology results. - Repeat colonoscopy in 10 years for screening purposes. Procedure Code(s): --- Professional --- 80260, Colonoscopy, flexible; with biopsy, single or multiple Diagnosis Code(s): --- Professional --- K52.9, Noninfective gastroenteritis and colitis, unspecified R10.32, Left lower quadrant pain CPT copyright 2021 [employer]. All rights reserved. The codes documented in this report are preliminary and upon supervisor finishing review may be revised to meet current compliance requirements. Inocente Mota MD 06/03/2023 8:17:42 AM This report has been signed electronically. Number of Addenda: 0 Note Initiated On: 06/03/2023 7:30 AM
--- NOTE | 2023-06-03 08:19 | OP.CCLET_ITS ---
06/03/2023 Gonzalo Zabala [address] [place] [address] Re : Colonoscopy procedure for Ellyn Mitchell Dear Dr. Zabala This procedure was performed on Saturday, June 03, 2023. My impressions and recommendations are as follows: Impressions : - Scattered mild inflammation was found in the sigmoid colon secondary to colitis. Biopsied. - The examination was otherwise normal on direct and retroflexion views. Recommendations : - Discharge patient to home. - Resume previous diet. - Continue present medications. - Await pathology results. - Repeat colonoscopy in 10 years for screening purposes. My findings are described in the full procedure note, which is enclosed. If I can be of further assistance, please feel free to contact me at Doctor phone number(s): , Work: . Sincerely, Inocente Mota MD 06/03/2023 8:17:42 AM This report has been signed electronically.
[2023-06-03 08:20] VITALS: BP 130/64; BP 95/55; PULSE 61; RESP 16; O2SAT 93
[2023-06-03 08:25] VITALS: BP 107/53; BP 130/64; PULSE 62; RESP 18; O2SAT 93
[2023-06-03 08:31] VITALS: BP 113/94; BP 130/64; PULSE 64; RESP 18; TEMP 36.4; O2SAT 94
[2023-06-03 08:51] VITALS: BP 130/64
== END 2023-06-03 09:27 | disposition home or self-care (01) ==
LOC: EN 07:21 → AC 07:22
PROVIDERS: PCP Family Medicine; Referring Provider Family Medicine; Visit Provider Surgery
PROC: 0DJD8ZZ Inspection of Lower Intestinal Tract, Via Natural or Artificial Opening Endoscopic (ICD-10-PCS; CPT 45378; principal; 2023-06-03 07:55)
DX: K52.9 Noninfective gastroenteritis and colitis, unspecified (principal); Z79.4 Long term (current) use of insulin; E11.9 Type 2 diabetes mellitus without complications; I10 Essential (primary) hypertension; Z79.84 Long term (current) use of oral hypoglycemic drugs; E78.00 Pure hypercholesterolemia, unspecified; Z79.899 Other long term (current) drug therapy; K21.9 Gastro-esophageal reflux disease without esophagitis
CPT/HCPCS: 45380; 82962; 88305; J7120; J2405

== ENCOUNTER → 2023-06-06 | Outpatient (CLI) | payer MEDICARE, OTHER, SELFPAY ==
--- NOTE | 2023-06-06 13:27 | MRI_ITS ---
EXAM: MR HEAD WITHOUT AND WITH INTRAVENOUS CONTRAST CLINICAL INDICATION: DIZZINESS TECHNIQUE: Multiplanar and multisequence MR images of the brain were obtained without and with intravenous contrast. CONTRAST: 18 mL of IV Clariscan. COMPARISON: No relevant prior studies available. FINDINGS: BRAIN AND EXTRA-AXIAL SPACES: Small T2 FLAIR hyperintensity foci in the white matter of the cerebral hemispheres are chronic white matter ischemic changes. Following IV contrast administration, there are no abnormally enhancing lesions intra-axially and extra-axially. 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 No intra- or extra-axial hemorrhage. No intracranial mass or mass effect. Posterior fossa structures are unremarkable. No hydrocephalus. Basal cisterns are patent. No diffusion restriction to suspect acute or subacute ischemic infarct. SELLA: Unremarkable. Normal sella turcica, pituitary gland, infundibular stalk, optic chiasm and hypothalamus. AUDITORY SYSTEM: Unremarkable. The internal auditory canals are patent. BONES/JOINTS: Unremarkable. No discrete lytic or blastic abnormalities. SINUSES: Unremarkable as visualized. Clear. MASTOID AIR CELLS: Unremarkable as visualized. Clear. ORBITS: Unremarkable as visualized. Both globes, extraocular muscles, optic nerves and retrobulbar fat appear unremarkable. VASCULATURE: Unremarkable as visualized. Normal flow voids in the major intracranial circulation. MRI/Brain W/WO Contrast IMPRESSION: 1. No MRI evidence of acute or subacute ischemic infarct or acute intracranial abnormality. 2. Small old cortical gyral ischemic infarct with cystic encephalomalacia and atrophy in the right postcentral gyrus. 3. Small chronic white matter ischemic changes in both cerebral hemispheres. 4. No abnormal enhancing lesions intra-axially and extra-axially. Electronically Signed: Timothy Cobian MD at 15:12 EST ,
--- OUTSIDE RECORDS SUMMARY | 2023-06-06 13:30 | XMS RPT_ITS | CCD ---
Author Name Unknown Address [address] [facility] [address] [place] [address] Organization [facility] Care Team Providers Care Deicer Inspector Electric Name Role Phone Stan Zabala Primary Care [...] TIFFANIE Attending Unavailable CAVO, TIFFANIE Referring Unavailable Allergies Allergy Classification Reported Allergen(s) Allergy Type Date of Onset Reaction(s) Facility (3 sources) Adhesive Tape Propensity to adverse reactions to drug 5 Rash [facility] Work Phone: (3 sources) celecoxib Drug Allergy 5 [facility] Work Phone: (11 sources) Ciprofloxacin Drug Allergy 6 Rash [facility] Work Phone: (3 sources) Lisinopril Drug Allergy 6 Other (See Comments) [facility] Work Phone: (8 sources) celecoxib Drug Allergy 0 [facility] (8 sources) Lisinopril Propensity to adverse reactions 6 [facility] (8 sources) Wound Dressing Adhesive Drug Intolerance 5 [facility] Medications Current Medications Medication Drug Class(es) Dates [...] Coronary arteriosclerosis; Translations: [Atherosclerotic heart disease of [place] coronary artery without angina pectoris] Onset: 02-09-2016 [...] Sign Value Performing Clinician Faci lity 02-21-2023 14:10040 Body height 167.6 cm Tiffanie Arango MD Work Phone: [facility] 02-21-2023 14:10-0400 Body mass index (BMI) [Ratio] 34.54 kg/m2 Tiffanie Arango MD Work Phone: [facility] 02-21-2023 14:10-0400 Body weight 97.07 kg Tiffanie Arango MD Work Phone: [facility] 02-21-2023 14:10-0400 Diastolic blood pressure 60 mm[Hg] Tiffanie Arango MD Work Phone: [facility] 02-21-2023 14:10-0400 Heart rate 56 /min Tiffanie Arango MD Work Phone: [facility] 02-21-2023 14:10-0400 SaO2% (BldA) [Mass fraction] 97 % Tiffanie Arango MD Work Phone: [facility] 02-21-2023 14:10-0400 Systolic blood pressure 106 mm[Hg] Tiffanie Arango MD Work Phone: [facility] 08-09-2022 13:46-0400 Body height 167.6 cm Tiffanie Arango MD Work Phone: [facility] 08-09-2022 13:46-0400 Body mass index (BMI) [Ratio] 35.41 kg/m2 Tiffanie Arango MD Work Phone: [facility] 08-09-2022 13:46-0400 Body weight 99.52 kg Tiffanie Arango MD Work Phone: [facility] 08-09-2022 13:46-0400 Diastolic blood pressure 62 mm[Hg] Tiffanie Arango MD Work Phone: [facility] 08-09-2022 13:46-0400 Heart rate 53 /min Tiffanie Arango MD Work Phone: [facility] 08-09-2022 13:46-0400 SaO2% (BldA) [Mass fraction] 96 % Tiffanie Arango MD Work Phone: [facility] 08-09-2022 13:46-0400 Systolic blood pressure 118 mm[Hg] Tiffanie Arango MD Work Phone: [facility] 03-26-2021 14:00-0500 Diastolic blood pressure 83 mm[Hg] Davdi Hagen MD Work Phone: [facility] 03-26-2021 14:00-0500 Heart rate 58 /min David Hagen MD Work Phone: [facility] 03-26-2021 14:00-0500 Respiratory rate 18 /min David Hagen MD Work Phone: [facility] 03-26-2021 14:00-0500 SaO2% (BldA) [Mass fraction] 93 % David Hagen MD Work Phone: [facility] 03-26-2021 14:00-0500 Systolic blood pressure 143 mm[Hg] David Hagen MD Work Phone: [facility] 03-26-2021 07:06-0500 Body temperature 96.8 [degF] David Hagen MD Work Phone: [facility] 08-11-2020 14:00-0400 BP Diastolic 61 mm[Hg] Kameron [...] Telephone encounter Kameron Valles MD Work Phone: [facility] Procedures Date Procedure Procedure Detail Performing Clinician Start: 08-25-2022 TTE w or wo fol wcon,Doppler Tiffanie Leo Work Phone: Start: 08-09-2022 Ecg routine ecg w/least 12 lds trcg only w/o i&r Kong Cash DO Work Phone: Start: 07-13-2022 Lipid 1996 panel [...] Start: 08-29-2023 End: 08-29-2023 Patient encounter procedure [facility] Start: 08-26-2023 End: 08-26-2023 Professional / ancillary services management 08/26/2023 4:00 PM EDT Ancillary Procedure [facility] [address] [place] [address] [facility] Start: 08-26-2023 Echocardiography Echocardiogram [facility] Start: 07-13-2023 Creatinine measurement Creatinine Level [facility] Start: 07-13-2023 Lipid panel Lipid Panel [facility] Start: 07-13-2023 Potassium measurement Potassium Level [facility] Start: 04-29-2023 End: 04-29-2023 Professional / ancillary services management 04/29/2023 4:30 PM EST Ancillary Procedure [facility] [address] [place] [address] [facility] Start: 03-10-2023 End: 03-10-2023 Professional / ancillary services management 03/10/2023 2:30 PM EDT Ancillary Procedure [facility] [address] [place] [address] [facility] Start: 02-21-2023 End: 02-22-2024 Creatine kinase [Enzymatic activity/volume] in Serum or Plasma CK Lab Routine Myalgia Expected: 02/21/2023 (Approximate), Expires: 02/22/2024 [facility] Work Phone: Immunizations Immunization Date Immunization Notes Care Provider Fa [facility] 02-19-2022 influenza virus vacc ine, unspecified formulation Tiffanie Arango MD Work Phone: [facility] 04-06-2021 Pfizer SARS-CoV-2 Vaccination Tiffanie Arango MD Work Phone: [facility] 08-14-2020 Pfizer SARS-CoV-2 Vaccination Tiffanie Arango MD Work Phone: [facility] 07-24-2020 Pfizer SARS-CoV-2 Vaccination Tiffanie Arango MD Work Phone: [facility] Payers Date Payer Category Payer Unknown [id number] 2015 Unknown [id number] 2013 Medicare [id number] 2013 Medicare MEDICARE MEDICAR E PART A AND B [id number] 2013-Present [address] [place] [address] Medicare [id number] Social History Date Type Detail Facility Start: 04-03-2015 End: 07-30-2020 Tobacco smoking status NHIS Never smoker [facility] Work Phone: Start: 04-03-2015 End: 07-30-2020 Tobacco use and exposure Never used [facility] Work Phone: Start: 07-30-2020 End: 02-21-2023 Alcohol intake Current drinker of alcohol (finding) [facility] Work Phone: Start: 08-28-2015 Alcohol Comment 2-3 monthly [facility] Work Phone: Start: 1950 Sex Assigned At Not on file S [employer] Work Phone: Start: 07-30-2022 End: 08-09-2022 Exposure to SARS-CoV-2 (event) Not sure [facility] Work Phone: Start: 03-26-2021 End: 02-21-2023 Alcohol intake [facility] Work Phone: Start: 08-09-2022 End: 02-21-2023 Tobacco use panel [facility] Medical Equipment Procedure Code Equipment Code Equipment Origin al Text Equipment Identifier Dates [id number] [employer] [id number] Start: 06-01-2010 [id number] [employer] V r Mri [id number] Start: 08-10-2020 Clinical Notes 03-26-2021 to 06-02-2023 Telephone Encounter - Rose Mary Vargas - 06/02/2023 10:33 AM ESTTelephone Encounter - Cyn Rob RN - 06/01/2023 4:05 PM ESTTelephone Encounter - Rose Mary Vargas - 06/01/2023 8:52 AM EST Note Date & Type Note Facility 06-02-2023 Miscellaneous Notes Signed perioperative ICD form faxed back to [facility]. Sent to stat scan as well Returned [...] Was handed a perioperative ICD form from [facility] that was faxed to our office today to fill out. Patient to have a colonoscopy and needed device orders. Completed device info and placed in Dr. Valles's office to sign. Will update Dr. Valles's team in [facility] documented in this encounter [facility] 06-02-2023 Telephone encounter Note Signed perioperative ICD form faxed back to [facility]. Sent to stat scan as well [facility] 06-01-2023 Telephone encounter Note Returned PC to patient and told her not to stop taking aspirin, patient understood [facility] 06-01-2023 Telephone encounter Note Should NOT stop ASA, has CAD as well as PVD. [employer] Work Phone: 06-01-2023 Telephone encounter Note Patient called in asking if she was okay to stop taking Aspirin. She stated she was told to stop taking it prior to her colonoscopy. Please call and advise. [facility] 05-31-2023 Telephone encounter Note Was handed a perioperative ICD form from [facility] that was faxed to our office today to fill out. Patient to have a colonoscopy and needed device orders. Completed device info and placed in Dr. Valles's office to sign. Will update Dr. Valles's team in epic [facility] 09-03-2022 Telephone encounter Note The patient called back to confirm she takes Spirolactone 25 mg 1\2 tab daily. [facility] 09-03-2022 Miscellaneous Notes The patient called back to confirm she takes Spirolactone 25 mg 1\2 tab daily. Pt's med list has spironolactone 25mg 1/[address] Arango's office note 08/09/22: Aldactone 25 mg daily, Left voice mail asking pt to call to clarify dosing. documented in this encounter [facility] 09-03-2022 Telephone encounter Note Pt's med list has spironolactone 25mg 1/[address] per Dr Arango's office note 08/09/22: Aldactone 25 mg daily, Left voice mail asking pt to call to clarify dosing. [facility] 08-09-2022 History of Presen t illness Narrative [facility] [address] [facility] [address] Dept: [phone] Dept Loc: [phone] Visit type: Established : 1950 Chief Complaint: [...] patient care plan. documented in this encounter [facility] 03-26-2021 [facility] DischBety Meza RN - 03/26/2021 Call your doctor with any medication questions or if you notice any side effects from your medications. If you are unable to fill your medications, please call your Director Of Audiology immediately. The office number is located with [...] gone by tomorrow. documented in this encounter [facility] Work Phone: 03-26-2021 History of Presen t illness Narrative S/p [facility] Plan for medical management with ranolazine. New prescription sent to patient's pharmacy. Explained to patient. I also sent message to our pharmacy about cost, asking to contact patient. Follow up arranged in 1 month to assess symptoms and response to ranolazine. [facility] understanding[facility] Post-Procedure Note Patient Name: Ellyn Cerna Date: 03/26/2021, 8:57 AM Pre-Operative Diagnosis: Angina Post-Operative Diagnosis: Non-obstructive CAD, confirmed with iFR Procedure: [facility] with coronary angiogram Access: R radial artery [...] Oli Davison MD documented in this encounter [facility] Work Phone: documented in this encounter [employer] Phone: Evaluation note* Diagnosis Chronic systolic heart failure (CMS/HCC) (HCC)- Primary Chronic systolic heart failure CAD (coronary artery disease) Coronary atherosclerosis of unspecified type of vessel, [place] or graft Encounter for adjustment or management of cardiac device documented in this encounter [facility]* Diagnosis Coronary artery disease involving [place] heart without angina pectoris, unspecified vessel or lesion type Mixed hyperlipidemia Encounter for adjustment or management of cardiac device documented in this encounter [facility]* Diagnosis Coronary artery disease involving [place] heart without angina pectoris, unspecified vessel or lesion type Chronic systolic heart failure (CMS/HCC) (HCC) Chronic systolic heart failure Hyperlipidemia, unspecified hyperlipidemia type Encounter for adjustment or management of cardiac device [facility] Diagnosis Chronic systolic heart failure (CMS/HCC) (HCC) Chronic systolic heart failure Encounter for adjustment or management of cardiac device [facility] Diagnosis Chronic systolic heart failure (CMS/HCC) (HCC) Chronic systolic heart failure Encounter for adjustment or management of cardiac device Encounter for adjustment or management of cardiac device documented [facility] this [facility] [place]* Diagnosis Myalgia- Primary Unspecified myalgia and myositis Coronary artery disease involving [place] coronary artery of [place] heart without angina pectoris Primary hypertension Unspecified essential hypertension ICD (implantable cardioverter-defibrillator) battery depletion Chronic systolic heart failure (HCC) Chronic systolic heart failure Encounter for adjustment or management of cardiac device documented in this encounter [facility] Assessments Diagnosis Preop cardiovascular exam Pre-operative cardiovascular examination Presence of automatic cardioverter/defibrillator (AICD) Automatic implantable cardiac defibrillator in situ Diagnosis ICD (implantable cardioverter-defibrillator) battery depletion Advance Directives No Advanced Directives Records FoundDocuments on File Type Date Recorded Patient Kennel Assistant Expl anation ACP-Advance Directive ACP-Power of Shredding Machine Operator Latest Code Status on File Code Status [...] Instr - Activity* Caitlyn Brown APRN - PRESTIDIGITATOR - 08/11/2020 1:19 PM EDT Per post [...] at most local grocery stores, pharmacies, and [employer]-stores. If you have any questions about your [...] symptoms occur, notify the device clinic immediately. [phone]. 5. If the area around your generator/incision [...] is scheduled for: Date__08/29/20 Time 9:00am o [address] [place] [address], [address] [place], [address] [address]. [address] documented in this encounter Summary Purpose Family History No Family History Records FoundNo Family History Records Found Reason for Referral Specialty Diagnoses / Procedures Referred By Xu t Referred To Contact Cardiology Diagnoses Coronary artery disease involving [place] heart without angina pectoris, unspecified vessel or lesion type Chronic systolic heart failure (CMS/HCC) (HCC) Hyperlipidemia, unspecified hyperlipidemia type Procedures Transthoracic echocardiogram (TTE) complete with contrast, bubble, strain, and 3D PRN WA ECHO TTHRC R-T 2D W/WOM-MODE COMPL SPEC&COLR D WA TTE W OR WO FOL WCON,Tiffanie Romero MD [address] [place] [address], [address] [place] [address] Non-Invasive Cardiology [address] [place] [address] Referral ID Status Reason Start Date Expiration Date V isits Requested Visits Authorized [id number] Closed Perform Procedure 07/12/2022 01/08/2023 1 1 [...] Care Teams (unrecognized sec tion and content) Deicer Inspector Electric Relationship Specialty Start Date End Date Stan Zabala [address] [place] [phone] PCP - General 02/27/18 Deicer Inspector Electric Relationship Specialty Start Date End Date Stan Zabala [address] [place] [phone] PCP - General 02/27/18 Deicer Inspector Electric Relationship Specialty Start Date End Date Stan Zabala [address] [place] [phone] PCP - General 02/27/18 Deicer Inspector Electric Relationship Specialty Start Date End Date Stan Zabala [address] [place] [phone] PCP - General 02/27/18 Deicer Inspector Electric Relationship Specialty Start Date End Date Stan Zabala [address] [place] [address] PCP - General 02/27/18 Deicer Inspector Electric Relationship Specialty Start Date End Date Stan Zabala [address] [place] [phone] PCP - General 02/27/18 INFORMATION SOURCE (unrecogn ized section and content) DATE CREATED AUTHOR AUTHOR'S ORGANIZ ATION 06/03/2023 [facility] Reason for Visit (unrecogniz ed section and content) Reason Onset Date Comments Med Refill 08/25/2022 Specialty Diagnoses / Procedures Referred By Contac t Referred To Contact Cardiology Diagnoses Coronary artery disease involving [place] heart without angina pectoris, unspecified vessel or lesion type Chronic systolic heart failure (CMS/HCC) (HCC) Hyperlipidemia, unspecified hyperlipidemia type Procedures Transthoracic echocardiogram (TTE) complete with contrast, bubble, strain, and 3D PRN WA ECHO TTHRC R-T 2D W/WOM-MODE COMPL SPEC&COLR D WA TTE W OR WO FOL WCON,DOPPLER Tiffanie Arango MD [address] [place] [address] [facility] Non-Invasive Cardiology [address] [place] [address] Referral ID Status Reason Start Date Expiration Date V isits Requested Visits Authorized [id number] Closed Perform Procedure 07/12/2022 01/08/2023 1 1 [...] BE BASED ON THE PRIMARY CLINICAL RECORDS. [employer] provides no warranty or guarantee of the accuracy or completeness of information in this document.
[2023-06-06 13:45] VITALS: BP 113/52; PULSE 57; RESP 16; O2SAT 96
[2023-06-06 13:55] VITALS: BP 139/62; PULSE 57; RESP 16; O2SAT 94
[2023-06-06 14:03] VITALS: BP 134/48; PULSE 56; RESP 16; O2SAT 93
[2023-06-06 14:05] LABS: CREATININE FINGERSTICK < 1.0 mg/dL (0.55-1.02)
[2023-06-06 14:10] VITALS: BP 133/58; PULSE 55; RESP 16; O2SAT 91
[2023-06-06 14:23] VITALS: BP 142/55; PULSE 60; RESP 16; O2SAT 94
[2023-06-06 14:32] VITALS: BP 132/40; PULSE 60; RESP 16; O2SAT 94
== END | disposition home or self-care (01) ==
LOC: MRI 13:08
PROVIDERS: PCP Family Medicine; Visit Provider Family Medicine
DX: G31.84 Mild cognitive impairment of uncertain or unknown etiology (principal); H81.8X9 Other disorders of vestibular function, unspecified ear
CPT/HCPCS: 70553; A9575

== ENCOUNTER → 2023-07-21 | Outpatient (CLI) | payer MEDICARE, OTHER, SELFPAY ==
--- NOTE | 2023-07-21 14:22 | CT_ITS ---
STUDY: CT ABDOMEN AND PELVIS WITH CONTRAST REASON FOR EXAM: Female, 72 years old. Noninfective gastroenteritis and colitis, unspecified RADIATION DOSAGE (If Supplied By Facility): CTDIvol = ( 21.13 ) mGy, DLP = ( 1210.85 ) mGycm TECHNIQUE: Oral and amp; IV Readi-CAT and amp; 100mL Isovue-300 was administered. Transaxial images were obtained from the dome of the diaphragm to the symphysis pubis. Multiplanar coronal and sagittal images were reformatted. Individualized Dose Optimization Techniques Were Used For This CT. COMPARISON: Prior study dated: 05/09/2012 FINDINGS: The visualized lung bases are unremarkable. The visualized portions of the heart are within normal limits. Coronary calcifications. Normal liver. There are surgical clips in the gallbladder fossa consistent with a prior cholecystectomy. Prominent common bile duct unchanged. Normal spleen. Normal pancreas. Normal bilateral adrenal glands. The stomach is not well distended. Normal in caliber small bowel loops. Fecal retention. No evidence of acute diverticulitis. The appendix is not visualized. There is diffuse atherosclerotic calcification of the abdominal aorta with elongation and tortuosity, but without a demonstrated aneurysm. No retroperitoneal adenopathy. Normal right kidney. Normal left kidney. Pockets of air within the bladder which may be due to recent catheterization. Otherwise infectious process cannot be excluded. There is absence of the uterus consistent with a prior hysterectomy. There is a small umbilical hernia containing fat. There are diffuse degenerative changes of the visualized lumbar spine. CT/Abdomen/Pelvis WITH Contrast IMPRESSION: 1. Fecal retention concerning for constipation. 2. No focal acute inflammatory process. 3. Status post cholecystectomy and appendectomy. 4. Pocket of air within the bladder presumably secondary to recent catheterization. Otherwise infectious process cannot be excluded. Electronically Signed: Aydin Jarquin MD at 11:17 EST ,
[2023-07-21 15:18] LABS: CREATININE FINGERSTICK 1.2 mg/dL (0.55-1.02)
--- OUTSIDE RECORDS SUMMARY | 2023-07-21 19:18 | XMS RPT_ITS | CCD ---
Author Name Unknown Address [address] [place] [id number] Organization [facility] Care Team Providers Care Leather Colorer Name Role Phone Stan Zabala Primary Care Provider Unavailab le CAVTIFFANIE Pascal Attending Unavailable JERRY, STAN Primary Care Unavailable STAN ZABALA Primary Care Unavailable CAVO, TIFFANIE Attending Unavailable JERRY, STAN Primary Care Unavailable JERRY, STAN Primary Care Unavailable JERRY, STAN Primary Care Unavailable JERRY, STAN Primary Care Unavailable CAVO, TIFFANIE Attending Unavailable STAN ZABALA Primary Care Unavailable STAN ZABALA Primary Care Unavailable STAN ZABALA Primary Care Unavailable CAVO, TIFFANIE Referring Unavailable CAVO, TIFFANIE Attending Unavailable CAVO, TIFFANIE Referring Unavailable CAVO, TIFFANIE Attending Unavailable JERRY, STAN Primary Care Unavailable Allergies Allergy Classification Reported Allergen(s) Allergy Type Date of Onset Reaction(s) Facility (3 sources) Adhesive Tape Propensity to adverse reactions to drug 5 [facility] [employer] Work Phone: (3 sources) celecoxib Drug Allergy 5 [employer] Work Phone: (13 sources) Ciprofloxacin Drug Allergy 6 [facility] [employer] Work Phone: (3 sources) Lisinopril Drug Allergy 6 Other (See Comments) [employer] Work Phone: [phone] (10 sources) celecoxib Drug Allergy 0 [facility] (10 sources) Lisinopril Propensity to adverse reactions 6 [facility] (10 sources) Wound Dressing Adhesive Drug Intolerance 5 [facility] Medications Current Medications Medication Drug Class(es) Dates Sig (Normalized) Sig (Original) acetaminophen 325 mg oral tablet (1 source) Start: 03-26-2021 acetaminophen (TYLENOL) tablet 650 mg aspirin 81 mg delayed release oral tablet (13 sources) Platelet Aggregation Inhibitor, Nonsteroidal Anti-inflammatory Drug [...] Documented Da te Episodic/Chronic Acute myocardial infarction (13 sources) Myocardial infarction; Translations: [Acute myocardial infarction, unspecified] Onset: 02-09-2016 02-09-2016 Chronic Conduction disorders (20 sources) Automatic implantable cardiac defibrillator in situ; Translations: [Presence of automatic (implantable) cardiac defibrillator] Onset: 02-22-2017 02-22-2017 Chronic Conduction disorders (2 sources) History of combination internal cardiac defibrillator and pacemaker; Translations: [ICD (implantable cardioverter-defibri llator) battery depletion] Onset: 08-11-2020 08-11-2020 Episodic Congestive heart failure; nonhypertensive (20 sources) Systolic heart failure; Translations: [Unspecified systolic (congestive) heart failure] Onset: 02-09-2016 02-09-2016 Chronic Coronary atherosclerosis and other heart disease (20 sources) Coronary arteriosclerosis; Translations: [Atherosclerotic heart disease of [place] coronary artery without angina pectoris] Onset: 02-09-2016 02-09-2016 Chronic Diabetes mellitus without complication (13 sources) Diabetes mellitus; Translations: [Type 2 diabetes mellitus without complications] Onset: 02-09-2016 02-09-2016 Chronic Disorders of lipid metabolism (18 sources) Hyperlipidemia; Translations: [Hyperlipidemia, unspecified] Onset: 02-09-2016 02-09-2016 Chronic Essential hypertension (16 sources) Hypertensive disorder; Translations: [Essential (primary) hypertension] Onset: 02-09-2016 02-09-2016 Chronic Other disorders of stomach and duodenum (2 sources) Disorder of function of stomach; Translations: [Disorder of function of stomach] Onset: 01-23-2010 09-18-2015 Chronic Peripheral and visceral atherosclerosis (12 sources) Peripheral vascular disease; Translations: [Peripheral vascular disease, unspecified] Onset: 08-09-2022 08-09-2022 Chronic Unclassified (1 source) Patient encounter status; Translations: [Preop cardiovascular exam] Past or Other Problems Problem Classification Problem Date Documented Da te Episodic/Chronic Esophageal disorders (13 sources) Esophagitis; Translations: [Esophagitis] Onset: 01-23-2010 09-18-2015 Episodic Gastritis and duodenitis (13 sources) Acute gastritis; Translations: [Acute gastritis without bleeding] Onset: 01-23-2010 09-18-2015 Episodic Malaise and fatigue (4 sources) Asthenia; Translations: [Weakness] Onset: 02-21-2023 02-21-2023 Episodic Nonspecific chest pain (12 sources) Chest pain; Translations: [Chest pain, unspecified] Onset: 03-26-2021 Episodic Other circulatory disease (2 sources) Other specified symptoms and signs involving the circulatory and respiratory systems; Translations: [Other specified symptoms and signs involving the circulatory and respiratory systems] Onset: 07-12-2022 Episodic Other connective tissue disease (5 sources) Muscle pain; Translations: [Myalgia, unspecified site] Onset: 02-21-2023 02-21-2023 Episodic Other connective tissue disease (2 sources) Myalgia, unspecified site; Translations: [Myalgia, unspecified site] Onset: 02-21-2023 Episodic Other disorders of stomach and duodenum (11 sources) Disorder of function of stomach; Translations: [Disease of stomach and duodenum, unspecified] Onset: 01-23-2010 09-18-2015 Episodic Results Test Name Value Interpretation Reference Range Facil ity Vital Signs Date Time Vital Sign Value Performing Clinician Faci lity 02-21-2023 14:10040 Body height 167.6 cm Tiffanie Arango MD Work Phone: [facility] 02-21-2023 14:10-0400 Body mass index (BMI) [Ratio] 34.54 kg/m2 Tiffanie Arango MD Work Phone: [facility] 02-21-2023 14:10-0400 Body weight 97.07 kg Tiffanie Arango MD Work Phone: [facility] 02-21-2023 14:10-0400 Diastolic blood pressure 60 mm[Hg] Tiffanie Arango MD Work Phone: [facility] 02-21-2023 14:10-0400 Heart rate 56 /min Tiffanie Arango MD Work Phone: [facility] 02-21-2023 14:10-0400 SaO2% (BldA) [Mass fraction] 97 % Tiffanie Arango MD Work Phone: [facility] 02-21-2023 14:10-0400 Systolic blood pressure 106 mm[Hg] Tiffanie Arango MD Work Phone: [facility] 08-09-2022 13:46-0400 Body height 167.6 cm Tiffanie Arango MD Work Phone: [facility] 08-09-2022 13:46-0400 Body mass index (BMI) [Ratio] 35.41 kg/m2 Tiffanie Arango MD Work Phone: [facility] 08-09-2022 13:46-0400 Body weight 99.52 kg Tiffanie Arango MD Work Phone: [facility] 08-09-2022 13:46-0400 Diastolic blood pressure 62 mm[Hg] Tiffanie Arango MD Work Phone: [facility] 08-09-2022 13:46-0400 Heart rate 53 /min Tiffanie Arango MD Work Phone: [facility] 08-09-2022 13:46-0400 SaO2% (BldA) [Mass fraction] 96 % Tiffanie Arango MD Work Phone: [facility] 08-09-2022 13:46-0400 Systolic blood pressure 118 mm[Hg] Tiffanie Arango MD Work Phone: [facility] 03-26-2021 14:00-0500 Diastolic blood pressure 83 mm[Hg] David Hagen MD Work Phone: [facility] 03-26-2021 14:00-0500 Heart rate 58 /min David Hagen MD Work Phone: [facility] 03-26-2021 14:00-0500 Respiratory rate 18 /min David Hagen MD Work Phone: [facility] 03-26-2021 14:00-0500 SaO2% (BldA) [Mass fraction] 93 % David Hagen MD Work Phone: [facility] 03-26-2021 14:00-0500 Systolic blood pressure 143 mm[Hg] David Hagen MD Work Phone: [facility] 03-26-2021 07:06-0500 Body temperature 96.8 [degF] David Hagen MD Work Phone: [facility] 08-11-2020 14:00-0400 BP Diastolic 61 mm[Hg] Kameron [...] Date Encounter Type Care Provider Facility Start: 06-06-2023 Telephone encounter Kameron Valles MD Work Phone: [facility] Procedures Date Procedure Procedure Detail Performing [...] Start: 08-29-2023 End: 08-29-2023 Patient encounter procedure [facility] Start: 08-26-2023 End: 08-26-2023 Professional / ancillary services management 08/26/2023 4:00 PM EDT Ancillary Procedure [facility] [address] [place] [address] [facility] Start: 08-26-2023 Echocardiography Echocardiogram [facility] Start: 07-13-2023 Creatinine measurement Creatinine Level [facility] Start: 07-13-2023 Lipid panel Lipid Panel [facility] Start: 07-13-2023 Potassium measurement Potassium Level [facility] Start: 04-29-2023 End: 04-29-2023 Professional / ancillary services management 04/29/2023 4:30 PM EST Ancillary Procedure [facility] [address] [place] [address] [facility] Start: 03-10-2023 End: 03-10-2023 Professional / ancillary services management 03/10/2023 2:30 PM EDT Ancillary Procedure [facility] [address] [place] [address] [facility] Start: 02-21-2023 End: 02-22-2024 Creatine kinase [Enzymatic activity/volume] in Serum or Plasma CK Lab Routine Myalgia Expected: 02/21/2023 (Approximate), Expires: 02/22/2024 [facility] Work Phone: Immunizations Immunization Date Immunization Notes Care Provider Fa [facility] 02-19-2022 influenza virus vacc ine, unspecified formulation Tiffanie Arango MD Work Phone: [facility] 04-06-2021 Pfizer SARS-CoV-2 Vaccination Tiffanie Arango MD Work Phone: [facility] 08-14-2020 Pfizer SARS-CoV-2 Vaccination Tiffanie Arango MD Work Phone: [facility] 07-24-2020 Pfizer SARS-CoV-2 Vaccination Tiffanie Arango MD Work Phone: [facility] Payers Date Payer Category Payer Unknown [id number] 2015 Unknown [id number] 2013 Medicare [id number] 2013 Medicare MEDICARE MEDICAR E PART A AND B [id number] 2013-Present [address] [place] [address] Medicare [id number] Social History Date Type Detail Facility Start: 04-03-2015 End: 07-30-2020 Tobacco smoking status NHIS Never smoker [employer] Work Phone: Start: 04-03-2015 End: 07-30-2020 Tobacco use and exposure Never used [employer] Work Phone: Start: 07-30-2020 End: 02-21-2023 Alcohol intake Current drinker of alcohol (finding) [employer] Work Phone: Start: 08-28-2015 Alcohol Comment 2-3 monthly [employer] Work Phone: Start: 1950 Sex Assigned At Not on file [employer] Work Phone: Start: 07-30-2022 End: 08-09-2022 Exposure to SARS-CoV-2 (event) Not sure [employer] Work Phone: Start: 03-26-2021 End: 02-21-2023 Alcohol intake [employer] Work Phone: Start: 08-09-2022 End: 02-21-2023 Tobacco use panel [facility] Medical Equipment Procedure Code Equipment Code Equipment Origin al Text Equipment Identifier Dates [id number] [employer] [id number] Start: 06-01-2010 [id number] [employer]isman V r Mri [id number] Start: 08-10-2020 Clinical Notes 03-26-2021 to 06-10-2023 Telephone Encounter - Rose Mary Vargas - 06/10/2023 11:19 AM ESTTelephone Encounter - Rose Mary Vargas - 06/10/2023 11:19 AM ESTTelephone Encounter - Patricia Diggs - 06/06/2023 2:14 PM EST Note Date & Type Note Facility 06-10-2023 Telephone encounter Note Completed and signed MRI clearance form faxed back to [facility]. Sent to stat scan as well. [facility] 06-10-2023 Miscellaneous Notes Completed and signed MRI clearance form faxed back to [facility]. Sent to stat scan as well. Received MRI clearance from [facility]. Printed and placed on MAP desk for review and signature. documented in this encounter [facility] 06-06-2023 Telephone encounter Note Received MRI clearance from [facility]. Printed and placed on MAP desk for review and signature. [facility] 06-06-2023 Miscellaneous Notes Received MRI clearance from [facility]. Printed and placed on MAP desk for review and signature. documented in this encounter [facility] 06-02-2023 Miscellaneous Notes Signed perioperative ICD form faxed back to [facility]. Sent to stat scan as well Returned [...] Was handed a perioperative ICD form from [facility] that was faxed to our office today to fill out. Patient to have a colonoscopy and needed device orders. Completed device info and placed in Dr. Valles's office to sign. Will update Dr. Valles's team in epic documented in this encounter [employer] 06-02-2023 Telephone encounter Note Signed perioperative ICD form faxed back to [facility]. Sent to stat scan as well [employer] 06-01-2023 Telephone encounter Note Returned PC to patient and told her not to stop taking aspirin, patient understood [employer] 06-01-2023 Telephone encounter Note Should NOT stop ASA, has CAD as well as PVD. [facility] Phone: 06-01-2023 Telephone encounter Note Patient called in asking if she was okay to stop taking Aspirin. She stated she was told to stop taking it prior to her colonoscopy. Please call and advise. [employer] 05-31-2023 Telephone encounter Note Was handed a perioperative ICD form from [facility] that was faxed to our office today to fill out. Patient to have a colonoscopy and needed device orders. Completed device info and placed in Dr. Valles's office to sign. Will update Dr. Valles's team in epic [facility] 09-03-2022 Telephone encounter Note The patient called back to confirm she takes Spirolactone 25 mg 1\2 tab daily. [facility] 09-03-2022 Miscellaneous Notes The patient called back to confirm she takes Spirolactone 25 mg 1\2 tab daily. Pt's med list has spironolactone 25mg 1/[address] Arango's office note 08/09/22: Aldactone 25 mg daily, Left voice mail asking pt to call to clarify dosing. documented in this encounter [facility] 09-03-2022 Telephone encounter Note Pt's med list has spironolactone 25mg 1/[address] per [address] Arango's office note 08/09/22: Aldactone 25 mg daily, Left voice mail asking pt to call to clarify dosing. [facility] 08-09-2022 History of Presen t illness Narrative [facility] C[facility] [address] [place] [address] Dept: [phone] Dept Loc: [phone] Visit type: Established : 1950 Chief Complaint: [...] artery disease) Diabetes (HCC) DM (diabetes mellitus) ([facility]) type 2 Dysphagia HTN (hypertension) Hyperlipemia Myocardial [...] BUN 19 07/13/2022 CREATININE 1.12 (A) 07/13/2022 @[facility]@ Lab Results Component Value Date CHLPL 135 [...] patient care plan. documented in this encounter [facility] 03-26-2021 Hospital Discharg Bety Bryan RN - 03/26/2021 Call your doctor with any medication questions or if you notice any side effects from your medications. If you are unable to fill your medications, please call your Metal Coater Operator immediately. The office number is located with [...] gone by tomorrow. documented in this encounter [facility] Work Phone: 03-26-2021 History of Presen t illness Narrative S/p [facility] Plan for medical management with ranolazine. New prescription sent to patient's pharmacy. Explained to patient. I also sent message to our pharmacy about cost, asking to contact patient. Follow up arranged in 1 month to assess symptoms and response to ranolazine. [facility]ized understanding. [facility] Post-Procedure Note Patient Name: Ellyn Cerna Date: 03/26/2021, 8:57 AM Pre-Operative Diagnosis: Angina Post-Operative Diagnosis: Non-obstructive CAD, confirmed with iFR Procedure: [facility] with coronary angiogram Access: R radial [...] Oli Davison MD [facility]: [facility] this [facility] Evaluation note* Diagnosis Chronic systolic heart failure (CMS/HCC) (HCC)- Primary Chronic systolic heart failure CAD (coronary artery disease) Coronary atherosclerosis of unspecified type of vessel, [place] or graft Encounter for adjustment or management of cardiac device documented in this encounter [facility]* Diagnosis Coronary artery disease involving [place] heart without angina pectoris, unspecified vessel or lesion type Mixed hyperlipidemia Encounter for adjustment or management of cardiac device documented in this encounter [facility]* Diagnosis Coronary artery disease involving [place] heart without angina pectoris, unspecified vessel or lesion type Chronic systolic heart failure (CMS/HCC) (HCC) Chronic systolic heart failure Hyperlipidemia, unspecified hyperlipidemia type Encounter for adjustment or management of cardiac device documented in this encounter [facility] Diagnosis Chronic systolic heart failure (CMS/HCC) (HCC) Chronic systolic heart failure Encounter for adjustment or management of cardiac device documented in this encounter [facility] Diagnosis Chronic systolic heart failure (CMS/HCC) (HCC) Chronic systolic heart failure Encounter for adjustment or management of cardiac device Encounter for adjustment or management of cardiac device documented in this encounter [facility]* Diagnosis Myalgia- Primary Unspecified myalgia and myositis Coronary artery disease involving [place] coronary artery of [place] heart without angina pectoris Primary hypertension Unspecified essential hypertension ICD (implantable cardioverter-defibrillator) battery depletion Chronic systolic heart failure (HCC) Chronic systolic heart failure Encounter for adjustment or management of cardiac device documented in this encounter [facility] Assessments Diagnosis Preop cardiovascular exam Pre-operative cardiovascular examination Presence of automatic cardioverter/defibrillator (AICD) Automatic implantable cardiac defibrillator in situ Diagnosis ICD (implantable cardioverter-defibrillator) battery depletion Advance Directives No Advanced Directives Records FoundDocuments on File Type Date Recorded Patient Sales Engagement Executive Expl anation ACP-Advance Directive ACP-Power of Prepress Stripper Latest Code Status on File Code Status [...] Instr - Activity* Caitlyn Brown APRN - CNP - 08/11/2020 1:19 PM EDT Per post [...] at most local grocery stores, pharmacies, and [employer]. If you have any questions about your [...] symptoms occur, notify the device clinic immediately. [phone]. 5. If the area around your generator/incision [...] is scheduled for: Date__08/29/20 Time 9:00am o [address] [place] [address], [address] [place], [address] [address] documented in this encounter Summary Purpose Family History No Family History Records FoundNo Family History Records Found Reason for Referral Specialty Diagnoses / Procedures Referred By Contac t Referred To Contact Cardiology Diagnoses Coronary artery disease involving [place] heart without angina pectoris, unspecified vessel or lesion type Chronic systolic heart failure (CMS/HCC) (HCC) Hyperlipidemia, unspecified hyperlipidemia type Procedures Transthoracic echocardiogram (TTE) complete with contrast, bubble, strain, and 3D PRN DE ECHO TTHRC R-T 2D W/WOM-MODE COMPL SPEC&COLR D DE TTE W OR WO FOL WCON,DOPPLER Tiffanie Arango MD [address] [place] [address], [address] [place] [address] Non-Invasive Cardiology [address] [place] [id number] Referral ID Status Reason Start Date Expiration Date V isits Requested Visits Authorized [id number] Closed Perform Procedure 07/12/2022 01/08/2023 1 1 [...] Care Teams (unrecognized sec tion and content) Leather Colorer Relationship Specialty Start Date End Date Stan Zabala [address] [facility] [place] [phone] PCP - General 02/27/18 Leather Colorer Relationship Specialty Start Date End Date Stan Zabala [address] [place] [address] PCP - General 02/27/18 Leather Colorer Relationship Specialty Start Date End Date Stan Zabala [address] [place] [address] PCP - General 02/27/18 Leather Colorer Relationship Specialty Start Date End Date Stan Zabala [address] [place] [address] PCP - General 02/27/18 Leather Colorer Relationship Specialty Start Date End Date Stan Zabala [address] [place] [address] PCP - General 02/27/18 Leather Colorer Relationship Specialty Start Date End Date Stan Zabala [address] [place] [address] PCP - General 02/27/18 Leather Colorer Relationship Specialty Start Date End Date Stan Zabala [address] [place] [address] PCP - General 02/27/18 INFORMATION SOURCE (unrecogn ized section and content) DATE CREATED AUTHOR AUTHOR'S ORGANIZ ATION 06/12/2023 [facility] Reason for Visit (unrecogniz ed section and content) Reason Onset Date Comments Med Refill 08/25/2022 Specialty Diagnoses / Procedures Referred By Contac t Referred To Contact Cardiology Diagnoses Coronary artery disease involving [place] heart without angina pectoris, unspecified vessel or lesion type Chronic systolic heart failure (CMS/HCC) (HCC) Hyperlipidemia, unspecified hyperlipidemia type Procedures Transthoracic echocardiogram (TTE) complete with contrast, bubble, strain, and 3D PRN DE ECHO TTHRC R-T 2D W/WOM-MODE COMPL SPEC&COLR D DE TTE W OR WO FOL WCON,Tiffanie Romero MD [address] [facility] [address] [place] [address] [facility] [address] Non-Invasive Cardiology [address] [place] [address] Referral ID Status Reason Start Date Expiration Date V isits Requested Visits Authorized [id number] Closed Perform Procedure 07/12/2022 01/08/2023 1 1 Reason Onset Date Comments Med Refill 09/03/2022 Reason Comments Med Refill Reason Comments Follow-up Congestive Heart Failure Reason Onset Date Comments Other 05/31/2023 Colonoscopy wolfgang luc form Reason Onset Date Comments Cardiac Clearance 06/06/2023 FOR RECORDS PERTAINING TO PATIENTS WHO ARE [...] BE BASED ON THE PRIMARY CLINICAL RECORDS. [employer] [facility]. provides no warranty or guarantee of the accuracy or completeness of information in this document.
== END | disposition home or self-care (01) ==
LOC: CT 14:22
PROVIDERS: PCP Family Medicine; Referring Provider Family Medicine; Visit Provider Family Medicine
DX: R10.32 Left lower quadrant pain (principal); K52.9 Noninfective gastroenteritis and colitis, unspecified
CPT/HCPCS: 74177; Q9967

== ENCOUNTER → 2023-08-22 | Outpatient (CLI) | payer MEDICARE, OTHER, SELFPAY ==
[2023-08-22 11:27] LABS: Anion Gap 5 (5-15); BUN 25 mg/dL (7-18); BUN/Creat Ratio 24.5 RATIO (10-20); Calcium,Total 9.1 mg/dL (8.5-10.1); Chloride 109 mmol/L (98-107); Creatinine, Serum 1.02 mg/dL (0.55-1.02); EST Glomerular Filtration Rate 56 mL/min (>60); Est Glom Filt Rate - Afr Amer 68 mL/min (>60); Glucose 92 mg/dL (74-106); Potassium 4.5 mmol/L (3.5-5.1); Sodium Level 142 mmol/L (136-145)
== END | disposition home or self-care (01) ==
LOC: LAB 10:53
PROVIDERS: PCP Family Medicine
DX: I50.22 Chronic systolic (congestive) heart failure (principal)
CPT/HCPCS: 36415; 80048

== ENCOUNTER → 2024-01-06 | Outpatient (CLI) | payer MEDICARE, OTHER, SELFPAY ==
[2024-01-06 10:17] LABS: Absolute Lymphocyte Count 1.81 X10^3/uL (0.83-4.51); Absolute Neutrophil Count 4.7 X10^3/uL (2.0-7.7); Basophil# 0.05 X10^3/uL; Basophil% 0.7 % (0-1); Eosinophil# 0.27 X10^3/uL; Eosinophils% 3.7 % (0-5); Hematocrit 42.1 % (37-47); Hemoglobin 13.6 g/dL (12.0-15.0); Lymphocyte # 1.81 X10^3/ul (0.83-4.51); Lymphocyte % 24.6 % (19-41); Mean Corp Hgb Conc 32.3 g/dL (32-36); Mean Corpuscular Volume 95.9 fL (81-99); Monocyte# 0.55 X10^3/uL; Monocyte% 7.5 % (0-10); NRBC Flagged by Analyzer 0 % (0-5); Neutrophil # 4.66 X10^3/uL (2.7-7.7); Neutrophil % 63.1 % (47-70); Platelet Count 189 K/mm3 (150-450); RBC Distribution Width CV 13.2 % (11.6-14.6); RBC Distribution Width SD 46.6 fl (35.1-43.9); Red Blood Count 4.39 M/mm3 (4.2-5.4); White Blood Count 7.4 K/mm3 (4.4-11.0)
[2024-01-06 10:50] LABS: Microalbumin,Random Urine 7.1 mg/L (NO RANGE EST.); Microalbumin:Creatinine Ratio 12.6 mg/g CRE (<30 mg/g CRE)
[2024-01-06 10:54] LABS: ALB/GLOB Ratio 0.9 RATIO (0.9-2.4); AST(SGOT) 15 U/L (15-37); Alanine Aminotransfer ALT/SGPT 23 U/L (13-56); Albumin, Serum 3.4 g/dL (3.2-5.0); Alkaline Phosphatase 82 U/L (45-117); Anion Gap 6 (5-15); BUN 24 mg/dL (7-18); BUN/Creat Ratio 21.8 RATIO (10-20); Calcium,Total 9.1 mg/dL (8.5-10.1); Chloride 105 mmol/L (98-107); Cholesterol 135 mg/dL (200); EST Glomerular Filtration Rate 51 mL/min (>60); Est Glom Filt Rate - Afr Amer 62 mL/min (>60); Globulin 3.8 g/dL (2.2-4.2); Glucose 101 mg/dL (74-106); High Density Lipoprotein 68 mg/dL; Potassium 4.5 mmol/L (3.5-5.1); Protein, Total 7.2 g/dL (6.4-8.2); Sodium Level 140 mmol/L (136-145); Triglycerides 118 mg/dL; Very Low Density Lipoprotein 24 mg/dL (5-40)
[2024-01-06 10:57] LABS: Hemoglobin A1c 7.4 % (3.8-5.6)
== END | disposition home or self-care (01) ==
LOC: LAB 09:14
PROVIDERS: PCP Family Medicine; Referring Provider Family Medicine; Visit Provider Family Medicine
DX: E11.319 Type 2 diabetes mellitus with unspecified diabetic retinopathy without macular edema (principal); E11.22 Type 2 diabetes mellitus with diabetic chronic kidney disease; N18.31 Chronic kidney disease, stage 3a; I12.9 Hypertensive chronic kidney disease with stage 1 through stage 4 chronic kidney disease, or unspecified chronic kidney disease; I25.10 Atherosclerotic heart disease of native coronary artery without angina pectoris
CPT/HCPCS: 36415; 80053; 80061; 82043; 82570; 83036; 85025

== ENCOUNTER → 2024-02-09 | Outpatient (CLI) | payer MEDICARE, OTHER, SELFPAY | END | disposition home or self-care (01) | LOC: LABSPEC 10:25 | PROVIDERS: PCP Family Medicine; Referring Provider Family Medicine; Visit Provider Family Medicine | DX: N39.0 Urinary tract infection, site not specified (principal) | CPT/HCPCS: 87086; 87088; 87186 ==

== ENCOUNTER → 2024-02-17 | Outpatient (CLI) | payer MEDICARE, OTHER, SELFPAY ==
--- NOTE | 2024-02-17 14:05 | BI_ITS ---
MAMMOGRAPHY - BILATERAL SCREENING REASON FOR EXAM: Female, 73 years old. Routine annual screening examination. PERTINENT HISTORY: Sister with breast cancer. TECHNIQUE: Digital bilateral breast waqar (3D mammographic acquisition) in the CC and MLO projections. 2-D mediolateral oblique (MLO) and craniocaudad (CC) views of both breasts were obtained. CAD: Full Field Digital Mammography with Computer Added Detection was performed. COMPARISON: Comparison is made with prior study dated January 14, 2022 and June 2017. FINDINGS: Breast Composition: The breasts are almost entirely fatty. There are no dominant masses or suspicious calcifications. A battery pack from a left-sided pacemaker device is seen in the left axilla. No other significant abnormalities are identified. There has been no significant change since the prior study. BI/SCRN MAMM (CAD)W/WAQAR BILAT IMPRESSION: Stable bilateral screening mammogram. Yearly follow-up mammogram recommended. (A) ASSESSMENT CATEGORY: BIRADS Category 2: Benign. A letter regarding these results will be sent to the patient by the facility within 30 days. Approximately 10% of breast cancers are not detected by mammography. A normal mammogram should not delay biopsy of a clinically suspicious abnormality. [id number] Electronically Signed: Albin Owusu MD at 14:41 EDT ,
== END | disposition home or self-care (01) ==
LOC: OPBI 14:04
PROVIDERS: PCP Family Medicine; Referring Provider Family Medicine; Visit Provider Family Medicine
DX: Z12.31 Encounter for screening mammogram for malignant neoplasm of breast (principal)
CPT/HCPCS: 77063; 77067

== ENCOUNTER → 2024-08-23 | Outpatient (CLI) | payer MEDICARE, OTHER, SELFPAY ==
[2024-08-23 13:16] LABS: ALB/GLOB Ratio 1.2 RATIO (0.9-2.4); AST(SGOT) 16 U/L (<=31); Alanine Aminotransfer ALT/SGPT 11 U/L (<=34); Albumin, Serum 4.1 g/dL (3.4-4.8); Alkaline Phosphatase 87 U/L (35-104); Anion Gap 12 (5-15); BUN 25 mg/dL (4-19); BUN/Creat Ratio 18.2 RATIO (10-20); Calcium,Total 9.5 mg/dL (7.6-11.0); Carbon Dioxide 23.5 mmol/L (21.0-32.0); Chloride 105 mmol/L (98-108); Creatinine, Serum 1.38 mg/dL (0.70-1.20); EST Glomerular Filtration Rate 40 (>60); Globulin 3.3 g/dL (2.2-4.2); Glucose 160 mg/dL (70-99); Hemoglobin A1c 7.2 % (<=5.6); Potassium 4.8 mmol/L (3.3-5.1); Protein, Total 7.4 g/dL (5.9-8.4); Sodium Level 140 mmol/L (133-145); Total Bilirubin 0.65 mg/dL (0.00-1.30)
== END | disposition home or self-care (01) ==
LOC: VSLAB 11:11
PROVIDERS: PCP Nurse Practitioner Family; Visit Provider Nurse Practitioner Family
DX: E11.9 Type 2 diabetes mellitus without complications (principal); N39.0 Urinary tract infection, site not specified
CPT/HCPCS: 36415; 80053; 83036; 87077; 87086; 87088

== ENCOUNTER → 2025-01-30 | Outpatient (CLI) | payer MEDICARE, OTHER, SELFPAY ==
--- NOTE | 2025-01-30 12:26 | US_ITS ---
PROCEDURE: KIDNEY AND BLADDER 01/30/2025 REASON FOR EXAM: UTI TECHNIQUE: Procedure Code: USKI Modality: US Procedure: KIDNEY AND BLADDER COMPARISON: None FINDINGS: Kidneys: Normal renal sizes, parenchymal thicknesses, and echotextures. [place]: No evidence of hydronephrosis. Cysts or Masses: No cysts or large solid renal masses. Other: RIGHT Kidney Size: 10.6 cm x 4.5 cm x 3.7 cm Delete Cortical Thickness (if discernible): 12 mm (>6mm is normal) LEFT Kidney Size: 10.6 cm x 4.2 cm x 5 cm Cortical Thickness (if discernible): 11 mm (>6mm is normal) Urinary bladder is unremarkable. US/Kidney and Bladder IMPRESSION: NORMAL RENAL ULTRASOUND. Reading Location: [place] [id number]
== END | disposition home or self-care (01) ==
LOC: US 12:23
PROVIDERS: PCP Family Medicine; Referring Provider Urology; Visit Provider Urology
DX: N39.0 Urinary tract infection, site not specified (principal)
CPT/HCPCS: 76770

== ENCOUNTER → 2025-03-22 | Outpatient (CLI) | payer MEDICARE, OTHER, SELFPAY ==
[2025-03-22 08:47] LABS: Hematocrit 42.0 % (37-47); Hemoglobin 14.0 g/dL (12.0-15.0); Immature Granulocytes Count 0.040 X10^3/uL (0.0-0.0); Mean Corp Hgb Conc 33.3 g/dL (32-36); Mean Corpuscular Volume 95.5 fL (81-99); Mean Platelet Vol. 11.1 fl (6.2-12.0); NRBC Flagged by Analyzer 0 % (0-5); Platelet Count 197 K/mm3 (150-450); RBC Distribution Width CV 12.8 % (11.6-14.6); RBC Distribution Width SD 44.7 fl (35.1-43.9); Red Blood Count 4.40 M/mm3 (4.2-5.4); White Blood Count 8.2 K/mm3 (4.4-11.0)
[2025-03-22 09:09] LABS: Creatinine, Urine (random) 64.10 mg/dL (28.00-217.00); Microalbumin,Random Urine 36.9 mg/L (<20 mg/L)
[2025-03-22 09:25] LABS: AST(SGOT) 17 U/L (<=31); Alanine Aminotransfer ALT/SGPT 12 U/L (<=34); Albumin, Serum 4.2 g/dL (3.4-4.8); Alkaline Phosphatase 76 U/L (35-104); Anion Gap 10 (5-15); BUN 27 mg/dL (4-19); BUN/Creat Ratio 22.3 RATIO (10-20); Calcium,Total 9.4 mg/dL (7.6-11.0); Carbon Dioxide 26.1 mmol/L (21.0-32.0); Chloride 102 mmol/L (98-108); Cholesterol 134 mg/dL (<=200); Globulin 3.1 g/dL (2.2-4.2); Glucose 217 mg/dL (70-99); Low Density Lipoprotein Calc. 55 mg/dL; Potassium 4.8 mmol/L (3.3-5.1); Triglycerides 91 mg/dL; Very Low Density Lipoprotein 18 mg/dL (5-40); Vitamin D,25 Hydroxy 29.9 ng/mL (30-100); cholesterol:hdl ratio screen 2.17
== END | disposition home or self-care (01) ==
LOC: LAB 07:49
PROVIDERS: PCP Family Medicine; Referring Provider Family Medicine; Visit Provider Family Medicine
DX: E11.319 Type 2 diabetes mellitus with unspecified diabetic retinopathy without macular edema (principal); E11.22 Type 2 diabetes mellitus with diabetic chronic kidney disease; N18.31 Chronic kidney disease, stage 3a; I12.9 Hypertensive chronic kidney disease with stage 1 through stage 4 chronic kidney disease, or unspecified chronic kidney disease; E78.5 Hyperlipidemia, unspecified; I25.10 Atherosclerotic heart disease of native coronary artery without angina pectoris; M85.852 Other specified disorders of bone density and structure, left thigh
CPT/HCPCS: 36415; 80053; 80061; 82043; 82306; 82570; 85025

== ENCOUNTER → 2025-04-08 | Outpatient (CLI) | payer MEDICARE, OTHER, SELFPAY ==
--- NOTE | 2025-04-08 10:01 | CDU_ITS ---
Reason For Study Reason For Study: Rt Carotid Bruit Rt. Velocities/BP Lt. Velocities/BP Prox CCA 59.1/8.1 cm/sec. Prox CCA 60.4/10.1 cm/sec. Mid CCA 62.9/11.0 cm/sec. Mid CCA 65.6/13.5 cm/sec. Dist CCA 63.9/9.1 cm/sec. Dist CCA 50.8/10.9 cm/sec. Prox ICA 68.7/13.9 cm/sec. Prox ICA 80.9/15.0 cm/sec. Mid ICA 65.8/17.6 cm/sec. Mid ICA 79.6/18.2 cm/sec. Dist ICA 77.6/17.1 cm/sec. Dist ICA 68.3/14.5 cm/sec. Rt. ICA/CCA = 1.2. Lt. ICA/CCA = 1.23. Prox ECA 136.3/4.7 cm/sec. Prox ECA 212.1/14.5 cm/sec. Rt. Vert. 22.5/6.1 cm/sec. Lt. Vert. 40.4/10.1 cm/sec. Right Extracranial There is intimal thickening but no significant atherosclerotic plaque noted in the right common carotid artery. There is heterogeneous, irregular atherosclerotic plaque noted in the right internal carotid artery. There is heterogeneous, irregular atherosclerotic plaque noted in the right external carotid artery. Antegrade flow is noted in the right vertebral artery. Left Extracranial There is heterogeneous, irregular atherosclerotic plaque noted in the left common carotid artery. There is heterogeneous, irregular atherosclerotic plaque noted in the left internal carotid artery. There is heterogeneous, irregular atherosclerotic plaque noted in the left external carotid artery. Antegrade flow is noted in the left vertebral artery. Procedure Carotid Duplex [id number]. This is a Carotid Duplex examination using B-mode, color flow and specral Doppler. The exam was diagnostic. Exam performed in department. VL/Carotid Duplex Ultrasound Interpretation Summary Mild (<50%) stenosis right extracranial internal carotid. Mild (<50%) stenosis left extracranial internal carotid. Flow within the vertebral arteries is antegrade bilaterally. Elevated velocities in the left external carotid artery are suggestive of stenosis >50%. Ordering Physician: Gonzalo Zabala Referring Physician: Gonzalo Zabala Performed By: [facility]
== END | disposition home or self-care (01) ==
LOC: CVS 09:58
PROVIDERS: PCP Family Medicine; Referring Provider Family Medicine; Visit Provider Family Medicine
DX: I65.23 Occlusion and stenosis of bilateral carotid arteries (principal)
CPT/HCPCS: 93880